=== PATIENT | female | born 1995 | race Caucasian/White ===

== ENCOUNTER 2016-10-01 21:21 | Emergency (ER) | payer OTHER ==
[2016-10-01 21:39] VITALS: TEMP 97.2
[2016-10-01] MEDS ORDERED: SODIUM CHLORIDE 0.9% 1,000 ML IV STA (23:28)
[2016-10-01] MEDS ORDERED: RX INFO: IV CONTRAST WAS GIVEN 1 EACH MISC MISCELLANE PRN (23:28)
[2016-10-01] MEDS ORDERED: ONDANSETRON 4 MG/2 ML VIAL IVP STA (23:28)
[2016-10-01] MEDS ORDERED: HYDROmorphone 1 MG/ML 1 ML SYRINGE IVP STA (23:29)
[2016-10-01] MEDS ORDERED: diphenhydrAMINE 50 MG/ML 1 ML VIAL IVP STA (23:29)
[2016-10-02 00:14] LABS: Appearance,Urine Turbid (Clear); Bacteria,Urine Moderate /hpf; Bilirubin,Urine Negative (Negative); Glucose,Urine (UA) Negative (Negative); Ketones,Urine Negative (Negative); Leukocyte Esterase,Urine Moderate (Negative); Mucus,Urine Many /hpf; Nitrite,Urine Negative (Negative); PH, Urine 6.5 (5.0-8.0); Particle Count 427985; Protein,Urine 1+ (Negative); RBC,Urine 5 /hpf (0-5); Specific Gravity,Urine 1.025 (1.001-1.035); Squamous Epithelial Cell,Urine 17 /hpf (0-4); UA Billing (MACRO vs. MICRO) MICRO; WBC,Urine 29 /hpf (0-5)
[2016-10-02 00:19] LABS: Basophils # (A) 0.1 k/uL (0-0.2); Basophils % (A) 1 %; CHCM 32.7; Eosinophils # (A) 0.4 k/uL (0-0.7); Eosinophils % (A) 6 %; HCT 39.3 % (34.0-46.0); HDW 2.18; HGB 12.5 gm/dL (11.4-16.0); Luc % (Auto) 3; Lymphocytes # (A) 2.9 k/uL (1.0-4.8); Lymphocytes % (A) 43 %; MCH 26.5 pg (25.0-35.0); MCHC 31.9 g/dL (31.0-37.0); Mean Platelet Volume 7.6; Monocytes # (A) 0.6 k/uL (0-1.0); Monocytes % (A) 8 %; Neutrophils # (A) 2.7 k/uL (1.3-7.7); Neutrophils % (A) 39 %; RBC 4.73 m/uL (3.80-5.40); RDW 14.4 % (11.5-15.5); WBC 6.8 k/uL (4.0-11.0); WBC (Perox) 6.84
[2016-10-02 00:29] LABS: INR 1.2 (<1.2); Partial Thromboplastin Time 25.8 sec (22.0-30.0); Prothrombin Time 11.9 sec (9.0-12.0)
--- NOTE | 2016-10-02 00:29 | ED ---
General Adult HPI - General Chief complaint: Headache Stated complaint: headache/nausea Time Seen by Provider: 10/01/16 23:07 Source: patient, RN notes reviewed, old records reviewed Mode of arrival: ambulatory Limitations: no limitations - History of Present Illness Initial comments: This is a 20-year-old female to the ER for evaluation. Patient today presents for evaluation of headache. Right-sided headache occasional numbness and tingling. Headache is throbbing, started to progressively worse. No nausea vomiting. No other issue no fevers. No trauma. Patient has no prior history of similar headaches. - Related Data Home Medications Medication Instructions Recorded Confirmed Albuterol Inhaler [Ventolin Hfa 2 puff INHALATION RT-QID PRN 10/01/16 10/01/16 Inhaler] DULoxetine HCL [Cymbalta] 20 mg PO DAILY 10/01/16 10/01/16 EPINEPHrine (Auto Inject) [Epipen] 0.3 mg IM ONCE PRN 10/01/16 10/01/16 clonazePAM [KlonoPIN] 0.5 mg PO DAILY PRN 10/01/16 10/01/16 Allergies Allergy/AdvReac Type Severity Reaction Status Date / Time almond oil Allergy Anaphylaxis Verified 10/01/16 22:54 bee venom protein (honey bee) Allergy Anaphylaxis Verified 10/01/16 22:54 coconut Allergy Anaphylaxis Verified 10/01/16 22:54 ciprofloxacin [From Cipro] AdvReac Nausea & Verified 10/01/16 22:54 Vomiting ketorolac [From Toradol] AdvReac Nausea & Verified 10/01/16 22:54 Vomiting morphine AdvReac Nausea & Verified 10/01/16 22:54 Vomiting Review of Systems ROS Statement: Those systems with pertinent positive or pertinent negative responses have been documented in the HPI. ROS Other: All systems not noted in ROS Statement are negative. Past Medical History Past Medical History: No Reported History History of Any Multi-Drug Resistant Organisms: None Reported Past Surgical History: Appendectomy Past Psychological History: Depression Smoking Status: Never smoker Past Alcohol Use History: None Reported Past Drug Use History: None Reported General Exam Limitations: no limitations General appearance: alert, in no apparent distress Head exam: Present: atraumatic, normocephalic, normal inspection Eye exam: Present: normal appearance, PERRL, EOMI. Absent: scleral icterus, conjunctival injection, periorbital swelling ENT exam: Present: normal exam, mucous membranes moist Neck exam: Present: normal inspection. Absent: tenderness, meningismus, lymphadenopathy Respiratory exam: Present: normal lung sounds bilaterally. Absent: respiratory distress, wheezes, rales, rhonchi, stridor Cardiovascular Exam: Present: regular rate, normal rhythm, normal heart sounds. Absent: systolic murmur, diastolic murmur, rubs, gallop, clicks GI/Abdominal exam: Present: soft, normal bowel sounds. Absent: distended, tenderness, guarding, rebound, rigid Extremities exam: Present: normal inspection, full ROM, normal capillary refill. Absent: tenderness, pedal edema, joint swelling, calf tenderness Back exam: Present: normal inspection Neurological exam: Present: alert, oriented X3, CN II-XII intact Psychiatric exam: Present: normal affect, normal mood Skin exam: Present: warm, dry, intact, normal color. Absent: rash Course Vital Signs 10/01/16 10/02/16 21:35 02:00 Temperature 97.2 F L Pulse Rate 71 90 Respiratory 18 16 Rate Blood Pressure 122/58 101/53 O2 Sat by Pulse 99 Oximetry EKG Findings - EKG Comments: EKG Findings:: EKG shows normal sinus rhythm rate of 67, NC 1.4, QRS 96, QTC 405 Medical Decision Making - Medical Decision Making 20 female here for evaluation regarding headache, asking for work note however CT negative. Patient will be discharged home - Lab Data Result diagrams: 10/02/16 23:45 10/02/16 00:00 Lab Results 10/01/16 10/01/16 10/02/16 Range/Units 00:00 23:48 00:00 WBC (4.0-11.0) k/uL RBC (3.80-5.40) m/uL Hgb (11.4-16.0) gm/dL Hct (34.0-46.0) % MCV (80.0-100.0) fL MCH (25.0-35.0) pg MCHC (31.0-37.0) g/dL RDW (11.5-15.5) % Plt Count (150-450) k/uL Neutrophils % % Lymphocytes % % Monocytes % % Eosinophils % % Basophils % % Neutrophils # (1.3-7.7) k/uL Lymphocytes # (1.0-4.8) k/uL Monocytes # (0-1.0) k/uL Eosinophils # (0-0.7) k/uL Basophils # (0-0.2) k/uL PT (9.0-12.0) sec INR (<1.2) APTT (22.0-30.0) sec Sodium 140 (137-145) mmol/L Potassium 4.1 (3.5-5.1) mmol/L Chloride 107 (98-107) mmol/L Carbon Dioxide 25 (22-30) mmol/L Anion Gap 8 mmol/L BUN 10 (7-17) mg/dL Creatinine 0.63 (0.52-1.04) mg/dL Est GFR (MDRD) Af Amer >60 (>60 ml/min/1.73 sqM) Est GFR (MDRD) Non-Af >60 (>60 ml/min/1.73 sqM) Glucose 90 (74-99) mg/dL Calcium 9.0 (8.4-10.2) mg/dL Phosphorus 3.9 (2.5-4.5) mg/dL Magnesium 2.0 (1.6-2.3) mg/dL Total Bilirubin 0.5 (0.2-1.3) mg/dL AST 18 (14-36) U/L ALT 28 (9-52) U/L Alkaline Phosphatase 43 (38-126) U/L Total Protein 6.8 (6.3-8.2) g/dL Albumin 4.1 (3.5-5.0) g/dL Urine Color Yellow Urine Appearance Turbid H (Clear) Urine pH 6.5 (5.0-8.0) Ur Specific [place] 1.025 (1.001-1.035) Urine Protein 1+ H (Negative) Urine Glucose (UA) Negative (Negative) Urine Ketones Negative (Negative) Urine Blood Negative (Negative) Urine Nitrite Negative (Negative) Urine Bilirubin Negative (Negative) Urine Urobilinogen 2.0 (<2.0) mg/dL Ur Leukocyte Esterase Moderate H (Negative) Urine RBC 5 (0-5) /hpf Urine WBC 29 H (0-5) /hpf Ur Squamous Epith Cells 17 H (0-4) /hpf Urine Bacteria Moderate H (None) /hpf Urine Mucus Many H (None) /hpf Urine HCG, Qual Not Detected (Not Detectd) Urine Opiates Screen Not Detected (NotDetected) Ur Oxycodone Screen Not Detected (NotDetected) Urine Methadone Screen Not Detected (NotDetected) Ur Propoxyphene Screen Not Detected (NotDetected) Ur Barbiturates Screen Not Detected (NotDetected) U Tricyclic Antidepress Not Detected (NotDetected) Ur Phencyclidine Scrn Not Detected (NotDetected) Ur Amphetamines Screen Not Detected (NotDetected) U Methamphetamines Scrn Not Detected (NotDetected) U Benzodiazepines Scrn Not Detected (NotDetected) Urine Cocaine Screen Not Detected (NotDetected) U Marijuana (THC) Screen Not Detected (NotDetected) 10/02/16 10/02/16 Range/Units 00:00 23:45 WBC 6.8 (4.0-11.0) k/uL RBC 4.73 (3.80-5.40) m/uL Hgb 12.5 (11.4-16.0) gm/dL Hct 39.3 (34.0-46.0) % MCV 83.0 (80.0-100.0) fL MCH 26.5 (25.0-35.0) pg MCHC 31.9 (31.0-37.0) g/dL RDW 14.4 (11.5-15.5) % Plt Count 234 (150-450) k/uL Neutrophils % 39 % Lymphocytes % 43 % Monocytes % 8 % Eosinophils % 6 % Basophils % 1 % Neutrophils # 2.7 (1.3-7.7) k/uL Lymphocytes # 2.9 (1.0-4.8) k/uL Monocytes # 0.6 (0-1.0) k/uL Eosinophils # 0.4 (0-0.7) k/uL Basophils # 0.1 (0-0.2) k/uL PT 11.9 (9.0-12.0) sec INR 1.2 H (<1.2) APTT 25.8 (22.0-30.0) sec Sodium (137-145) mmol/L Potassium (3.5-5.1) mmol/L Chloride (98-107) mmol/L Carbon Dioxide (22-30) mmol/L Anion Gap mmol/L BUN (7-17) mg/dL Creatinine (0.52-1.04) mg/dL Est GFR (MDRD) Af Amer (>60 ml/min/1.73 sqM) Est GFR (MDRD) Non-Af (>60 ml/min/1.73 sqM) Glucose (74-99) mg/dL Calcium (8.4-10.2) mg/dL Phosphorus (2.5-4.5) mg/dL Magnesium (1.6-2.3) mg/dL Total Bilirubin (0.2-1.3) mg/dL AST (14-36) U/L ALT (9-52) U/L Alkaline Phosphatase (38-126) U/L Total Protein (6.3-8.2) g/dL Albumin (3.5-5.0) g/dL Urine Color Urine Appearance (Clear) Urine pH (5.0-8.0) Ur Specific [place] (1.001-1.035) Urine Protein (Negative) Urine Glucose (UA) (Negative) Urine Ketones (Negative) Urine Blood (Negative) Urine Nitrite (Negative) Urine Bilirubin (Negative) Urine Urobilinogen (<2.0) mg/dL Ur Leukocyte Esterase (Negative) Urine RBC (0-5) /hpf Urine WBC (0-5) /hpf Ur Squamous Epith Cells (0-4) /hpf Urine Bacteria (None) /hpf Urine Mucus (None) /hpf Urine HCG, Qual (Not Detectd) Urine Opiates Screen (NotDetected) Ur Oxycodone Screen (NotDetected) Urine Methadone Screen (NotDetected) Ur Propoxyphene Screen (NotDetected) Ur Barbiturates Screen (NotDetected) U Tricyclic Antidepress (NotDetected) Ur Phencyclidine Scrn (NotDetected) Ur Amphetamines Screen (NotDetected) U Methamphetamines Scrn (NotDetected) U Benzodiazepines Scrn (NotDetected) Urine Cocaine Screen (NotDetected) U Marijuana (THC) Screen (NotDetected) - Radiology Data Radiology results: report reviewed (CTA CT brain is negative for acute disease) , image reviewed Disposition Clinical Impression: Migraine Disposition: HOME SELF-CARE Condition: Good Instructions: Acute Headache (ED) Referrals: Selene Carl MD [Primary Care Provider] - 1-2 days
[2016-10-02 00:33] LABS: ALT 28 U/L (9-52); AST 18 U/L (14-36); Alkaline Phosphatase 43 U/L (38-126); Anion Gap 8 mmol/L; Blood Urea Nitrogen 10 mg/dL (7-17); Carbon Dioxide 25 mmol/L (22-30); Chloride 107 mmol/L (98-107); Glucose 90 mg/dL (74-99); Non-African American GFR(MDRD) >60 (>60 ml/min/1.73 sqM); Phosphorous 3.9 mg/dL (2.5-4.5); Potassium 4.1 mmol/L (3.5-5.1); Sodium 140 mmol/L (137-145); Total Bilirubin 0.5 mg/dL (0.2-1.3); Total Protein 6.8 g/dL (6.3-8.2)
--- NOTE | 2016-10-02 01:31 | CT ---
EXAM: CT Head Without Intravenous Contrast CLINICAL HISTORY: Weakness. Headache. Numbness in the lips and left hand TECHNIQUE: Axial computed tomography images of the head/brain without intravenous contrast. Coronal and sagittal reformats were obtained. CTDI is 57.40 mGy and DLP is 1116.00 mGy-cm. This CT exam was performed using one or more of the following dose reduction techniques: automated exposure control, adjustment of the mA and/or kV according to patient size, and/or use of iterative reconstruction technique. COMPARISON: None FINDINGS: Brain: Unremarkable. No hemorrhage. No edema. Ventricles: Unremarkable. No ventriculomegaly. Bones/joints: Unremarkable. No acute fracture. Sinuses: Unremarkable as visualized. No acute sinusitis. Mastoid air cells: Unremarkable as visualized. No mastoid effusion. IMPRESSION: No acute intracranial abnormality.
[2016-10-02 02:10] VITALS: BP 101/53; PULSE 90; RESP 16
--- NOTE | 2016-10-02 02:12 | CT ---
EXAM: CT Angiography Head With Intravenous Contrast CLINICAL HISTORY: Reason: Pain TECHNIQUE: Axial computed tomographic angiography images of the head with intravenous contrast using CT angiography protocol. Coronal and sagittal reformats were obtained. CTDI is 57.4 mGy and DLP is 1116.0 mGy-cm. This CT exam was performed using one or more of the following dose reduction techniques: automated exposure control, adjustment of the mA and/or kV according to patient size, and/or use of iterative reconstruction technique. MIP reconstructed images were created and reviewed. CONTRAST: 65 mL of Omnipaque 350 administered intravenously. COMPARISON: Noncontrast head CT earlier same evening. FINDINGS: Right internal carotid artery: No acute findings. Intracranial segment is patent with no significant stenosis. No aneurysm. Right anterior cerebral artery: Unremarkable. No occlusion or significant stenosis. No aneurysm. Right middle cerebral artery: Unremarkable. No occlusion or significant stenosis. No aneurysm. Right posterior cerebral artery: Unremarkable. No occlusion or significant stenosis. No aneurysm. Right vertebral artery: Patent, dominant artery. No stenosis or dissection. Left internal carotid artery: No acute findings. Intracranial segment is patent with no significant stenosis. No aneurysm. Left anterior cerebral artery: Unremarkable. No occlusion or significant stenosis. No aneurysm. Left middle cerebral artery: Unremarkable. No occlusion or significant stenosis. No aneurysm. Left posterior cerebral artery: Unremarkable. No occlusion or significant stenosis. No aneurysm. Left vertebral artery: Patent. No stenosis or dissection. Basilar artery: Unremarkable. No occlusion or significant stenosis. No aneurysm. IMPRESSION: No aneurysm or hemodynamically significant stenosis. EXAM: CT Angiography Neck With Intravenous Contrast CLINICAL HISTORY: Reason: Pain TECHNIQUE: Axial computed tomographic angiography images of the neck with intravenous contrast using CT angiography protocol. Coronal and sagittal reformats were obtained. CTDI is 49.8 mGy and DLP is 196.4 mGy-cm. This CT exam was performed using one or more of the following dose reduction techniques: automated exposure control, adjustment of the mA and/or kV according to patient size, and/or use of iterative reconstruction technique. MIP reconstructed images were created and reviewed. CONTRAST: 65 mL of Omnipaque 350 administered intravenously. COMPARISON: None. FINDINGS: VASCULATURE: Contrast bolus timing is suboptimal, mildly delayed with greater degree of enhancement of the jugular veins and carotid arteries. Allowing for this, the carotid arteries are sufficiently enhanced for assessment. Right common carotid artery: Unremarkable. No significant stenosis. No dissection or occlusion. Right internal carotid artery: Unremarkable. Extracranial segment is patent with no significant stenosis. No dissection or occlusion. Right external carotid artery: Unremarkable. No occlusion. Right vertebral artery: Unremarkable. No significant stenosis. No dissection or occlusion. Left common carotid artery: Unremarkable. No significant stenosis. No dissection or occlusion. Left internal carotid artery: Unremarkable. Extracranial segment is patent with no significant stenosis. No dissection or occlusion. Left external carotid artery: Unremarkable. No occlusion. Left vertebral artery: Unremarkable. No significant stenosis. No dissection or occlusion. NECK: Bones/joints: No acute fracture. No dislocation. Soft tissues: Unremarkable as visualized. No mass. CAROTID STENOSIS REFERENCE USING NASCET CRITERIA: % ICA stenosis = (1 - narrowest ICA diameter/diameter of distal cervical ICA) x 100. Mild - <50% stenosis. Moderate - 50-69% stenosis. Severe - 70-94% stenosis. Near occlusion - 95-99% stenosis. Occluded - 100% stenosis. IMPRESSION: No dissection or hemodynamically significant stenosis.
== END 2016-10-02 02:48 | disposition home or self-care (01) ==
LOC: EC 21:21
DX: G43.909 Migraine, unspecified, not intractable, without status migrainosus (principal); F32.9 Major depressive disorder, single episode, unspecified; Z79.899 Other long term (current) drug therapy; Z88.1 Allergy status to other antibiotic agents; Z88.5 Allergy status to narcotic agent; Z88.6 Allergy status to analgesic agent; Z91.030 Bee allergy status; Z91.018 Allergy to other foods; Z91.048 Other nonmedicinal substance allergy status
CPT/HCPCS: 36415; 93005; 80053; 83735; 84100; 85025; 85610; 85730; 81001; 81025; 87491; 87591; 80306; 87086; 70496; 70450; 70498; 99285; 96374; 96375; 96361; J1200; Q9967; J2405; 87077; 87186

== ENCOUNTER 2017-02-11 18:16 | Emergency (ER) | payer OTHER ==
--- NOTE | 2017-02-11 19:33 | ED ---
URI HPI - General Chief Complaint: Upper Respiratory Infection Stated Complaint: CHEST CONGESTION Time Seen by Provider: 02/11/17 19:06 Source: patient, RN notes reviewed Mode of arrival: ambulatory Limitations: no limitations - History of Present Illness Initial Comments: This is a 21-year-old female presents emergency Department with chief complaint of cough, chest congestion over the last 3-4 days. Patient states that sometimes is productive sometimes is more of a dry hacking cough. She states it hurts when she coughs in her chest. She denies any dyspnea, fever, chills, runny nose, sore throat, ear pain. 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 Patient denies any abdominal pain including nausea vomiting diarrhea constipation. - Related Data Home Medications Medication Instructions Recorded Confirmed Albuterol Inhaler [Ventolin Hfa 2 puff INHALATION RT-QID PRN 10/01/16 02/11/17 Inhaler] DULoxetine HCL [Cymbalta] 20 mg PO DAILY 10/01/16 02/11/17 EPINEPHrine (Auto Inject) [Epipen] 0.3 mg IM ONCE PRN 10/01/16 02/11/17 clonazePAM [KlonoPIN] 0.5 mg PO DAILY PRN 10/01/16 02/11/17 ARIPiprazole [Abilify] 2 mg PO DAILY 02/11/17 02/11/17 Previous Rx's Medication Instructions Recorded Azithromycin [Zithromax Z-pack] 0 mg PO DIRECTED #1 pack 02/11/17 predniSONE 50 mg PO DAILY #5 tab 02/11/17 Allergies Allergy/AdvReac Type Severity Reaction Status Date / Time almond oil Allergy Anaphylaxis Verified 02/11/17 19:22 bee venom protein (honey bee) Allergy Anaphylaxis Verified 02/11/17 19:22 coconut Allergy Anaphylaxis Verified 02/11/17 19:22 ciprofloxacin [From Cipro] AdvReac Nausea & Verified 02/11/17 19:22 Vomiting ketorolac [From Toradol] AdvReac Nausea & Verified 02/11/17 19:22 Vomiting morphine AdvReac Nausea & Verified 02/11/17 19:22 Vomiting Review of Systems ROS Statement: Those systems with pertinent positive or pertinent negative responses have been documented in the HPI. ROS Other: All systems not noted in ROS Statement are negative. Past Medical History Past Medical History: No Reported History History of Any Multi-Drug Resistant Organisms: None Reported Past Surgical History: Appendectomy Past Psychological History: Depression Smoking Status: Never smoker Past Alcohol Use History: None Reported Past Drug Use History: None Reported General Exam Limitations: no limitations General appearance: alert, in no apparent distress Head exam: Present: atraumatic, normocephalic, normal inspection Eye exam: Present: normal appearance, PERRL, EOMI. Absent: scleral icterus, conjunctival injection, periorbital swelling ENT exam: Present: normal exam, normal oropharynx, mucous membranes moist, TM's normal bilaterally, normal external ear exam Neck exam: Present: normal inspection, full ROM. Absent: tenderness, meningismus, lymphadenopathy Respiratory exam: Present: normal lung sounds bilaterally, chest wall tenderness (Mild anterior). Absent: respiratory distress, wheezes, rales, rhonchi, stridor Cardiovascular Exam: Present: regular rate, normal rhythm, normal heart sounds. Absent: systolic murmur, diastolic murmur, rubs, gallop, clicks GI/Abdominal exam: Present: soft, normal bowel sounds. Absent: distended, tenderness, guarding, rebound, rigid Course Vital Signs 02/11/17 18:54 Temperature 98.9 F Pulse Rate 94 Respiratory 18 Rate Blood Pressure 106/55 O2 Sat by Pulse 99 Oximetry Medical Decision Making - Medical Decision Making 21-year-old female presented emergency Department chief complaint of cough congestion, chest discomfort with coughing. Patient has acute bronchitis with costochondritis. Patient was started on azithromycin, prednisone. Return parameters were discussed. Disposition Clinical Impression: Bronchitis, Costochondritis, acute Disposition: HOME SELF-CARE Condition: Stable Instructions: Costochondritis (ED) Additional Instructions: Please return to the Emergency Department if symptoms worsen or any other concerns. Prescriptions: Azithromycin [Zithromax Z-pack] 0 mg PO DIRECTED #1 pack predniSONE 50 mg PO DAILY #5 tab Referrals: Selene Carl MD [Primary Care Provider] - 1-2 days Time of Disposition: 20:03
[2017-02-11 20:20] VITALS: BP 112/60; PULSE 85; RESP 20; TEMP 98.5
--- NOTE | 2017-02-11 20:24 | XR ---
EXAMINATION: XR chest 2V DATE AND TIME: 02/11/2017 7:49 PM ORDERING PROVIDER: Brennon Andrade CLINICAL INDICATION: Cough/pain TECHNIQUE: PA and lateral COMPARISON: None. DESCRIPTION: The lungs are clear. The pleural spaces are negative. The cardiac silhouette is not enlarged. The mediastinal and pleural silhouettes are unremarkable. The skeletal structures are intact without focal findings. The soft tissues are unremarkable. IMPRESSION: NO ACUTE PROCESS.
== END 2017-02-11 20:20 | disposition home or self-care (01) ==
LOC: EC 18:16
DX: J20.9 Acute bronchitis, unspecified (principal); M94.0 Chondrocostal junction syndrome [Tietze]; F32.9 Major depressive disorder, single episode, unspecified; Z79.899 Other long term (current) drug therapy; Z88.1 Allergy status to other antibiotic agents; Z88.5 Allergy status to narcotic agent; Z88.6 Allergy status to analgesic agent; Z91.018 Allergy to other foods; Z91.030 Bee allergy status; Z91.048 Other nonmedicinal substance allergy status
CPT/HCPCS: 71020; 99283

== ENCOUNTER 2017-06-22 23:00 | Outpatient (CLI) | payer OTHER ==
[2017-06-22 23:50] VITALS: BP 143/80; PULSE 117; RESP 16; TEMP 97.8
--- NOTE | 2017-06-23 06:45 | P.MSEPDOC ---
Presenting Problems - Arrival Data Date of Arrival on Unit: 06/22/17 Time of Arrival on Unit: 23:01 Mode of Transport: Wheelchair - Complaint OB-Reason for Admission/Chief Complaint: Pain Comment: abd pain x20 mins Medical History - Information : 1 Para: 0 Term: 0 : 0 Abortions: Spontaneous or Elective: 0 Number of Living Children: 0 - Gestational Age Gestational Age by AMELIA (wks/days): 22 Weeks and 0 Days - History Comment: DOM- pt of Dr Hargrove Review of Systems - Review of Systems Constitutional: No problems Breast: No problems ENT: No problems Cardiovascular: No problems Respiratory: No problems Gastrointestinal: No problems Genitourinary: No problems Musculoskeletal: No problems Neurological: No problems Skin: No problems Vital Signs - Temperature Temperature: 97.8 F Temperature Source: Temporal Artery Scan - Pulse Right Pulse Rate: 117 Pulse Assessment Method: Pulse Oximetry - Respirations Respiratory Rate: 16 O2 Sat by Pulse Oximetry: 100 - Blood Pressure Right Arm Blood Pressure: 143/80 Blood Pressure Mean: 101 Blood Pressure Source: Automatic Cuff Medical Screen Scoring (Pre) - Cervical Exam Dilation: Exam Deferred Effacement: Exam Deferred - Uterine Contractions Frequency: N/A Duration: N/A Intensity: N/A - Maternal Vital Signs Maternal Temperature: N/A Maternal Blood Pressure: N/A Signs of Preeclampsia: N/A - Pain Assessment Pain Location and Character: Abdomen Pain Scale Used: Numeric (1 - 10) Pain Intensity: 6 Pain Management Goal: 3 Pain Description: *Acute, Sharp Pain Frequency: Constant Pain Duration: 20 Pain Duration Units: Minutes Pain Aggravating Factors: None Pharmacological Interventions: PRN Medication Non-Pharmacological Interventions: Position/Reposition - Maternal Trauma Maternal Trauma: N/A - Total Score Total Score (Pre): 0 - Level of Risk Level of Risk: Low (0-5) Physician Notification (Pre) - Physician Notified Physician Notified Date: 06/22/17 Physician Notified Time: 23:28 Physician/Practitioner Notifed:: Dr Blackwell - Notification Comment Comment: reported on pts c/o sudden onset abd pain since 2244, arrived here at 2300. reported on fhts dopplered 132-150s, no cntrx noted, abd soft and non tender. orders to check cervix and if closed may go home, if HR is still elevated then may go to ER for further eval. Disposition - Disposition OB Disposition: Discharge to home Discharge Date: 06/22/17 Discharge Time: 23:45 I agree with the RN Medical Screening Exam: Yes Risk & Benefit of care provided described in d/c instruction: Yes Diagnosis: GENERALIZED ABDOMINAL PAIN
== END 2017-06-22 23:45 | disposition home or self-care (01) ==
LOC: FBPOP 23:00
PROVIDERS: ATTEND Obstetrics & Gynecology
DX: O26.893 Other specified pregnancy related conditions, third trimester (principal); R10.84 Generalized abdominal pain; Z3A.22 22 weeks gestation of pregnancy
CPT/HCPCS: 99213

== ENCOUNTER 2017-08-18 13:42 | Outpatient (CLI) | payer OTHER ==
[2017-08-18 14:17] VITALS: BP 126/65; PULSE 88; RESP 16; TEMP 98.6
--- NOTE | 2017-08-27 22:10 | P.MSEPDOC ---
Presenting Problems - Arrival Data Date of Arrival on Unit: 08/18/17 Time of Arrival on Unit: 13:50 Mode of Transport: Wheelchair - Complaint OB-Reason for Admission/Chief Complaint: Rule Out PROM Comment: pt arrived c/o cramping and states she had leaking of fluid that she noticed about 10 mintes prior to coming up here to l/d to be evualted Medical History - Information : 1 Para: 0 Term: 0 : 0 Abortions: Spontaneous or Elective: 0 Number of Living Children: 0 - Gestational Age Gestational Age by AMELIA (wks/days): 30 Weeks and 1 Days - History Complications: No Care Review of Systems - Review of Systems Constitutional: No problems Breast: No problems ENT: No problems Cardiovascular: No problems Respiratory: No problems Gastrointestinal: No problems Genitourinary: No problems Musculoskeletal: No problems Neurological: No problems Skin: No problems Vital Signs - Temperature Temperature: 98.6 F Temperature Source: Oral - Pulse Right Brachial Pulse Rate: 88 Pulse Assessment Method: Automatic Cuff - Respirations Respiratory Rate: 16 Oxygen Delivery Method: Room Air - Blood Pressure Right Arm Blood Pressure: 126/65 Blood Pressure Mean: 85 Blood Pressure Source: Automatic Cuff Medical Screen Scoring (Post) - Cervical Exam Dilation: Exam Deferred Effacement: Exam Deferred Membranes: Intact - Uterine Contractions Frequency: N/A Duration: N/A Intensity: N/A - Maternal Vital Signs Maternal Temperature: N/A Signs of Preeclampsia: N/A Maternal Respirations: N/A - Pain Assessment Pain Location and Character: Abdomen Pain Scale Used: Numeric (1 - 10) Pain Intensity: 1 Pain Management Goal: 1 Pain Description: Cramping Pain Radiation Location: n/a Pain Frequency: Occasional Pain Duration: 45 Pain Duration Units: Minutes Pain Behavior: Vocalization Pain Aggravating Factors: Position, Sitting Non-Pharmacological Interventions: Position/Reposition, Relaxation Technique - Maternal Trauma Maternal Trauma: N/A - Assessment Heart Rate: 150 Heart Rate - NICHD Category: Category I (Normal) = 0 NST: Reactive Position: N/A Station: N/A - Total Score Total Score (Post): 0 - Post Treatment Level of Risk Post Treatment Level of Risk: Low (0-5) Physician Notification (Post) - Physician Notified Physician Notified Date: 08/18/17 Physician Notified Time: 14:30 Spoke With: dr mojica New Order Received: Yes - Notification Comment Comment: may discharge home Disposition - Disposition OB Disposition: Discharge to home Discharge Date: 08/18/17 Discharge Time: 14:35 I agree with the RN Medical Screening Exam: Yes Risk & Benefit of care provided described in d/c instruction: Yes Diagnosis: FALSE LABOR BEFORE 37 COMPLETED WEEKS OF GEST, THIRD TRI
== END 2017-08-18 14:35 | disposition home or self-care (01) ==
LOC: FBPOP 13:42
PROVIDERS: ATTEND Obstetrics & Gynecology
DX: O47.03 False labor before 37 completed weeks of gestation, third trimester (principal); Z3A.30 30 weeks gestation of pregnancy
CPT/HCPCS: 59025; 84112; G0463; 99213

== ENCOUNTER 2017-10-04 19:34 | Observation (INO) | payer OTHER ==
[2017-10-04 21:29] VITALS: RESP 18
--- NOTE | 2017-10-04 22:12 | US ---
EXAMINATION TYPE: US OB >= 14 wk fetus DATE OF EXAM: 10/04/2017 COMPARISON: None CLINICAL HISTORY: cardiac decelerations; patient stated came to hospital due to reduced moveme nt; patient stated is measuring approximately 2 weeks earlier than established EDC; TECHNIQUE: Transabdominal (TA) GESTATIONAL AGE / DATING Physician Established: (36 weeks/6 days) EDC: 10/26/2017 Dates by LMP: (36 weeks/3 days) EDC: 10/26/2017 Dates by First Scan: no previous. This is first scan at this hospital Dates by Current Scan: (38 weeks/4 days) EDC: 10/14/2017 Beta HCG (if available): NA SURVEY IUP: Single PLACENTA: posterior as able to visualize due to crowding PREVIA: No Previa as able to visualize cervix as head shadowing portion of cervix HENRY: 12.2 cm Normal CERVICAL LENGTH (transabdominal: norm > 3.0cm): 3.4 cm BIOMETRY PRESENTATION: Vertex LIE: Longitudinal BPD: 9.8 cm 40 weeks / 0 days HC: 34.9 cm 40 weeks / 4 days AC: 34.9 cm 38 weeks / 5 days FL: 7.3 cm 37 weeks / 4 days ESTIMATED WEIGHT IN GRAMS: 3609.0 grams ESTIMATED WEIGHT IN LBS/OZ: 7 lbs. 15 oz. WEIGHT PERCENTAGE BASED ON ESTABLISHED DATES: 94.6% HC/AC: 1.0 Normal FL/AC: 21.03 Normal HEART RATE: 140 bpm RHYTHM: Normal Single, live IUP, 38 weeks/4 days, EDC: 10/14/2017, [id number]. IMPRESSION: Cervix appears closed and measures 3.3 cm. Amniotic fluid is adequate. No complicating process seen.
[2017-10-04] MEDS: LACTATED RINGERS 1,000 ML IV SCH (23:21)
[2017-10-04 23:27] LABS: Basophils % (A) 0 %; Eosinophils # (A) 0.3 k/uL (0-0.7); Eosinophils % (A) 4 %; HCT 26.5 % (34.0-46.0); HGB 8.7 gm/dL (11.4-16.0); Lymphocytes # (A) 1.5 k/uL (1.0-4.8); Lymphocytes % (A) 21 %; MCH 25.2 pg (25.0-35.0); MCHC 32.9 g/dL (31.0-37.0); MCV 76.5 fL (80.0-100.0); Mean Platelet Volume 8.1; Monocytes # (A) 0.5 k/uL (0-1.0); Monocytes % (A) 7 %; Neutrophils # (A) 4.8 k/uL (1.3-7.7); Neutrophils % (A) 66 %; Platelet Count 274 k/uL (150-450); RBC 3.47 m/uL (3.80-5.40); WBC 7.3 k/uL (4.0-11.0)
[2017-10-05 00:15] VITALS: BP 132/70; PULSE 94; TEMP 97.5; BMI 34.9
[2017-10-05 00:15] LABS: Amphetamine Screen,Urine Not Detected (NotDetected); Barbiturate Screen,Urine Not Detected (NotDetected); Benzodiazepines Screen,Urine Not Detected (NotDetected); Cocaine Screen,Urine Not Detected (NotDetected); Methadone Screen, Urine Not Detected (NotDetected); Opiate Screen,Urine Not Detected (NotDetected); Oxycodone Screen, Urine Not Detected (NotDetected); Phencyclidine Screen,Urine Not Detected (NotDetected); Tricyclic Antidepressant,Urine Not Detected (NotDetected); Urn Cannabinoid Scrn Not Detected (NotDetected)
--- NOTE | 2017-10-05 00:20 | US ---
EXAMINATION TYPE: US OB BPP wo non-stress DATE OF EXAM: 10/05/2017 COMPARISON: US CLINICAL HISTORY: decel.; another cardiac deceleration episode per patient's RN EXAM PERFORMED: Transabdominal (TA) BPP PARAMETERS: PRESENTATION: Vertex LIE: longitudinal maternal left?? HEART RATE: 144 bpm RHYTHM: Normal HENRY: 15.1cm DIAPHRAGM IMAGED: yes BPP SCORIN. Breathin (seen near exam's end) (1 episode of breathing of 30 second duration in 30 minutes of scanning time) 2. Movement: 2 (continual sucking of thumb) with multiple episodes, plus head turn and return (at least 3 discrete body movements in 30 minutes) 3. Tone: 2 (head rotated and moved back to position) (1 episode of active flexion/extension of limb) 4. HENRY: 2 (HENRY index > 5cm) TOTAL SCORE: 8 / 8 Impression The biophysical profile score is normal.
[2017-10-05] MEDS: LACTATED RINGERS 1,000 ML IV SCH (06:05)
--- NOTE | 2017-10-05 07:17 | P.HPOB ---
History of Present Illness H&P Date: 10/05/17 Chief Complaint: Decreased movement This is a 21-year-old white female 1 para 0 EDC 10/26/2017 at 36-6/7 weeks' gestation. Patient states she perceived decreased movement, noted to movements over the course of 2 hours while doing her kick counts. She came in for monitoring at that time. Over the course of monitoring a deceleration was noted for approximate 2 minutes. For that reason, an ultrasound was performed. This revealed a sapp vertex fluid, normal amniotic fluid index of 12.22, estimated weight 7 lbs. 15 oz. or 2008 grams, 94th percentile. Urine drug screen was performed and this was negative. The decision was made to admit the patient for prolonged monitoring through the night. history significant for blood type AB+, rubella status immune, VDRL testing, urine culture, hepatitis B surface antigen, HIV testing, gonorrhea and chlamydia cultures all negative. Group B strep cultures negative. Patient did present to our office late in the as a transfer from another physician. Social history patient is single, she denies alcohol drug or tobacco use. Past medical history significant for bipolar disorder, complex seizure disorder , depression and anxiety, and asthma. Past surgical history significant for appendectomy, myringotomy tubes. Current medications Ventolin inhaler as needed, vitamin daily. ALLERGIES include ciprofloxacin to which she reports emesis and blurry vision, morphine and Toradol to which she reports emesis. On exam this is a pleasant young female, 4 foot 8 inches 15 6 pounds, blood pressure 132/70, pulse 94, 99% O2 saturation. The general physical exam is within normal limits. Chest was clear in all maxwell. Cervix is closed, long, posterior, vertex. heart rate is in the 140s baseline with overall good variability, periods of reactive NST. Hemoglobin 8.7, white blood cell count 7.3. Impression: 36-6/7 weeks intrauterine , maternal perception for decreased movement. Plan biophysical profile will be performed. Monitoring through the night with reassessment in the morning. Review of Systems Negative except as in HPI Past Medical History Past Medical History: Asthma, GERD/Reflux, Seizure Disorder Additional Past Medical History / Comment(s): complex seizure distorder till 8 yrs old History of Any Multi-Drug Resistant Organisms: None Reported Past Surgical History: Appendectomy, Ear Surgery Past Anesthesia/Blood Transfusion Reactions: No Reported Reaction Past Psychological History: ADD/ADHD, Bipolar, Depression Smoking Status: Never smoker Past Alcohol Use History: None Reported Past Drug Use History: None Reported - Past Family History Mother Family Medical History: Diabetes Mellitus, Hypertension Medications and Allergies Home Medications Medication Instructions Recorded Confirmed Type Albuterol Inhaler [Ventolin Hfa 2 puff INHALATION RT-QID PRN 10/01/16 10/04/17 History Inhaler] EPINEPHrine (Auto Inject) [Epipen] 0.3 mg IM ONCE PRN 10/01/16 08/18/17 History Pnv,Calcium 72/Iron/Folic Acid 1 each PO DAILY 10/04/17 10/04/17 History [ Plus Tablet] Allergies Allergy/AdvReac Type Severity Reaction Status Date / Time almond oil Allergy Anaphylaxis Verified 10/04/17 19:46 bee venom protein (honey bee) Allergy Anaphylaxis Verified 10/04/17 19:46 coconut Allergy Anaphylaxis Verified 10/04/17 19:46 ciprofloxacin [From Cipro] AdvReac Nausea & Verified 10/04/17 19:46 Vomiting ketorolac [From Toradol] AdvReac Nausea & Verified 10/04/17 19:46 Vomiting morphine AdvReac Nausea & Verified 10/04/17 19:46 Vomiting Exam Vital Signs Temp Pulse Resp BP Pulse Ox 10/05/17 00:08 97.5 F L 94 18 132/70 99 10/04/17 23:00 98.4 F 117 H 18 137/71 10/04/17 19:50 97.5 F L 94 18 132/70 99 Intake and Output 10/04/17 10/05/17 10/05/17 22:59 06:59 14:59 Intake Total 1000 Balance 1000 Intake: Intake, IV Titration 1000 Amount Lactated Ringers 1,000 ml 1000 @ 125 mls/hr IV .Q8H COUNTS INCLUDE 234 BEDS AT THE [facility] Rx#:[id number] Other: # Voids 3 Weight 69.853 kg 70.76 kg See dictation under HPI Results Result Diagrams: 10/04/17 23:20 Abnormal Lab Results - Last 24 Hours (Table) 10/04/17 Range/Units 23:20 RBC 3.47 L (3.80-5.40) m/uL Hgb 8.7 L (11.4-16.0) gm/dL Hct 26.5 L (34.0-46.0) % MCV 76.5 L (80.0-100.0) fL Assessment and Plan Assessment: 36-6/7 weeks intrauterine , decreased movement, anemia Plan: Continuous monitoring through the night with reevaluation in the morning. Time with Patient: Less than 30
--- NOTE | 2017-10-05 07:19 | P.DS ---
Providers Date of admission: 10/04/17 23:11 Expected date of discharge: 10/05/17 Attending physician: Merly Lira Primary care physician: Stated None Hospital Course: This is a 21-year-old white female 1 para 0 EDC 10/26/2017 at 36-6/7 weeks' gestation. Patient presented last night with perception of decreased movement. She is a late transfer to our practice. She states and doing her kick counts she only felt 2 movements over the course of 2 hours and came in for evaluation. Reactive nonstress test was noted, however there was a deceleration noted as well. Please see my admitting H&P for details. Ultrasound was performed at the bedside. There is normal fluid, HENRY 12.2. Estimated weight 94.6 percentile. Infant is vertex, no apparent anomalies of the placenta are appreciated. An additional deceleration was noted and therefore a biophysical profile was also performed. This revealed a score of 8 out of 8. Admitting labs include hemoglobin 8.7, WBC 7.3. This morning the patient states that the baby is active. She is having irregular uterine contractions. Through the course of the night to decelerations were noted, overall good variability is appreciated. Patient's vital signs continued to be afebrile. She is hungry and wishing for discharge home. Patient may be discharged home at this time. I am recommending ferrous sulfate 325 mg twice a day. I'm asking that she continue taking good movement with daily kick counts and return if she perceives a decrease. Of activity. Otherwise she will follow-up in the office in 2 days for visit and nonstress test. Patient understands these recommendations and lives locally. Patient Condition at Discharge: Good Plan - Discharge Summary New Discharge Prescriptions: No Action EPINEPHrine (Auto Inject) [Epipen] 0.3 mg IM ONCE PRN PRN Reason: Anaphylaxis Albuterol Inhaler [Ventolin Hfa Inhaler] 2 puff INHALATION RT-QID PRN PRN Reason: Shortness Of Breath Pnv,Calcium 72/Iron/Folic Acid [ Plus Tablet] 1 each PO DAILY Discharge Medication List Albuterol Inhaler [Ventolin Hfa Inhaler] 2 puff INHALATION RT-QID PRN 10/01/16 [ History] EPINEPHrine (Auto Inject) [Epipen] 0.3 mg IM ONCE PRN 10/01/16 [History] Pnv,Calcium 72/Iron/Folic Acid [ Plus Tablet] 1 each PO DAILY 10/04/17 [ History]
== END 2017-10-05 07:30 | disposition home or self-care (01) ==
LOC: FBPOP 19:34 → INTOOBSV 23:11 → 4FBP 23:11 → UNDODISIN 10-05 07:30
PROVIDERS: ADMIT Obstetrics & Gynecology; ATTEND Obstetrics & Gynecology Obstetrics
DX: O36.8130 Decreased fetal movements, third trimester, not applicable or unspecified (principal); O99.343 Other mental disorders complicating pregnancy, third trimester; O76 Abnormality in fetal heart rate and rhythm complicating labor and delivery; O99.613 Diseases of the digestive system complicating pregnancy, third trimester; K21.9 Gastro-esophageal reflux disease without esophagitis; O99.513 Diseases of the respiratory system complicating pregnancy, third trimester; J45.909 Unspecified asthma, uncomplicated; F31.9 Bipolar disorder, unspecified; F90.9 Attention-deficit hyperactivity disorder, unspecified type; F41.9 Anxiety disorder, unspecified; O99.013 Anemia complicating pregnancy, third trimester; D64.9 Anemia, unspecified; Z3A.36 36 weeks gestation of pregnancy; Z90.49 Acquired absence of other specified parts of digestive tract; Z88.1 Allergy status to other antibiotic agents; Z91.030 Bee allergy status; Z88.5 Allergy status to narcotic agent; Z91.018 Allergy to other foods; Z86.69 Personal history of other diseases of the nervous system and sense organs; Z82.49 Family history of ischemic heart disease and other diseases of the circulatory system; Z83.3 Family history of diabetes mellitus
CPT/HCPCS: 59025; 85025; 80306; 76805; 76819; G0463; G0378 ×2; 99213

== ENCOUNTER 2017-10-09 02:20 | Outpatient (CLI) | payer OTHER ==
[2017-10-09 23:06] LABS: Appearance,Urine Cloudy (Clear); Bilirubin,Urine Negative (Negative); Blood,Urine Large (Negative); Color,Urine Light Red; Glucose,Urine (UA) Negative (Negative); Ketones,Urine Trace (Negative); Leukocyte Esterase,Urine Moderate (Negative); Mucus,Urine Rare /hpf; Nitrite,Urine Negative (Negative); PH, Urine 6.5 (5.0-8.0); Protein,Urine 1+ (Negative); RBC,Urine >182 /hpf (0-5); Specific Gravity,Urine 1.013 (1.001-1.035); Squamous Epithelial Cell,Urine 4 /hpf (0-4); Urobilinogen,Urine <2.0 mg/dL (<2.0); WBC,Urine 42 /hpf (0-5)
[2017-10-09 23:10] VITALS: BP 147/84; PULSE 107; RESP 16; TEMP 98.6
[2017-10-09] MEDS ORDERED: CEPHALEXIN 500 MG CAP PO STA (23:23)
--- NOTE | 2017-11-23 09:29 | P.MSEPDOC ---
Presenting Problems - Arrival Data Date of Arrival on Unit: 10/09/17 Time of Arrival on Unit: 22:47 Mode of Transport: Ambulatory - Complaint OB-Reason for Admission/Chief Complaint: Other Comment: bleeding with voiding Medical History - Information : 1 Para: 0 Term: 0 : 0 Abortions: Spontaneous or Elective: 0 Number of Living Children: 0 - Gestational Age Gestational Age by AMELIA (wks/days): 37 Weeks and 4 Days Review of Systems - Review of Systems Constitutional: No problems Breast: No problems ENT: No problems Cardiovascular: No problems Respiratory: No problems Gastrointestinal: No problems Genitourinary: No problems Musculoskeletal: No problems Neurological: No problems Skin: No problems Vital Signs - Temperature Temperature: 98.6 F Temperature Source: Oral - Pulse Right Sitting Brachial Pulse Rate: 107 Pulse Assessment Method: Automatic Cuff - Respirations Respiratory Rate: 16 Oxygen Delivery Method: Room Air - Blood Pressure Right Arm Sitting Blood Pressure: 147/84 Blood Pressure Mean: 105 Blood Pressure Source: Automatic Cuff Medical Screen Scoring (Pre) - Cervical Exam Dilation: Exam Deferred Effacement: Exam Deferred Membranes: Intact - Uterine Contractions Frequency: > or = 36 weeks =2 Duration: > 40 seconds = 2 - Maternal Vital Signs Maternal Temperature: N/A Maternal Blood Pressure: Systolic >139 = 2 Signs of Preeclampsia: N/A Maternal Respirations: N/A - Pain Assessment Pain Scale Used: Numeric (1 - 10) Pain Intensity: 0 - Assessment Baseline FHR: 145 Heart Rate - NICHD Category: Category I (Normal) = 0 NST: Reactive Position: N/A Station: N/A - Total Score Total Score (Pre): 6 - Level of Risk Level of Risk: Medium (6-9) Physician Notification (Pre) - Physician Notified Physician Notified Date: 10/09/17 Physician Notified Time: 22:56 Physician/Practitioner Notifed:: richard Spoke With: richard New Order Received: Yes - Notification Comment Comment: send UA, call with results. Physician Notification (Post) - Physician Notified Physician Notified Date: 10/09/17 Physician Notified Time: 23:20 Physician/Practitioner Notified:: richard Spoke With: richard New Order Received: Yes - Notification Comment Comment: give PO keflex and then d/c home with orders to f/u at her appt tomorrow. Disposition - Disposition OB Disposition: Discharge to home Discharge Date: 10/09/17 Discharge Time: 23:55 I agree with the RN Medical Screening Exam: Yes Risk & Benefit of care provided described in d/c instruction: Yes Diagnosis: URINARY TRACT INFECTION, SITE NOT SPECIFIED
== END 2017-10-09 23:55 | disposition home or self-care (01) ==
LOC: FBPOP 02:20
PROVIDERS: ATTEND Obstetrics & Gynecology Obstetrics
DX: O23.43 Unspecified infection of urinary tract in pregnancy, third trimester (principal); Z3A.37 37 weeks gestation of pregnancy
CPT/HCPCS: 59025; 81001; G0463; 99213

== ENCOUNTER 2017-10-21 10:05 | Inpatient (IN) | payer OTHER ==
[2017-10-18 14:31] VITALS: BMI 35.9
[2017-10-21] MEDS ORDERED: METHYLERGONOVINE 0.2 MG/ML 1 ML AMP IM PRN (10:36)
[2017-10-21] MEDS ORDERED: LIDOCAINE 1% (PF) 10 MG/ML (30 ML SDV) SQ PRN (10:36)
[2017-10-21] MEDS ORDERED: TERBUTALINE 1 MG/ML VIAL SQ PRN (10:36)
[2017-10-21] MEDS ORDERED: ceFAZolin IN SWFI 2 GM/20 ML SYRINGE IVP ONE (10:36)
[2017-10-21] MEDS ORDERED: OXYTOCIN 10 UNIT/ML 1 ML VIAL IM PRN (10:36)
[2017-10-21] MEDS ORDERED: CARBOPROST TROMETHAMINE 250 MCG/ML 1 ML AMP IM PRN (10:36)
[2017-10-21] MEDS ORDERED: CITRIC ACID-SODIUM CITRATE 15 ML CUP PO ONE (10:38)
[2017-10-21 10:58] LABS: Basophils % (A) 1 %; Eosinophils # (A) 0.4 k/uL (0-0.7); Eosinophils % (A) 9 %; HCT 28.7 % (34.0-46.0); HGB 9.3 gm/dL (11.4-16.0); Hypochromasia Slight; Lymphocytes # (A) 1.1 k/uL (1.0-4.8); Lymphocytes % (A) 24 %; MCH 25.2 pg (25.0-35.0); MCHC 32.4 g/dL (31.0-37.0); MCV 77.8 fL (80.0-100.0); Mean Platelet Volume 7.8; Monocytes # (A) 0.5 k/uL (0-1.0); Monocytes % (A) 10 %; Neutrophils # (A) 2.4 k/uL (1.3-7.7); Neutrophils % (A) 52 %; Platelet Count 217 k/uL (150-450); RBC 3.69 m/uL (3.80-5.40); WBC 4.6 k/uL (4.0-11.0)
--- NOTE | 2017-10-21 11:25 | P.HPOB ---
History of Present Illness H&P Date: 10/21/17 Chief Complaint: Breech at 39 weeks gestation This is a 21-year-old 1 para 0 woman with an estimated due date of 10/26 based on ultrasound who is admitted for a primary low transverse section secondary to breech presentation. Her has been unremarkable. She transferred care to us at approximately 34 weeks. She has a history of asthma, anxiety, depression and bipolar disorder however is not on any current treatment. Laboratory data: Blood type AB+, antibody screen negative, rubella immune, VDRL nonreactive, hep Brandi surface antigen negative, HIV negative, gonorrhea and clinic cultures negative, group B strep screening negative Review of Systems All systems: negative Past Medical History Past Medical History: Asthma, GERD/Reflux, Pneumonia, Seizure Disorder, Skin Disorder Additional Past Medical History / Comment(s): complex seizure distorder until 8 yrs old, heart murmer, eczema, anemia, pneumonia 9th grade History of Any Multi-Drug Resistant Organisms: None Reported Past Surgical History: Appendectomy, Ear Surgery Past Anesthesia/Blood Transfusion Reactions: Motion Sickness Past Psychological History: ADD/ADHD, Anxiety, Bipolar, Depression, Panic Disorder Additional Psychological History / Comment(s): "high anxiety" Smoking Status: Never smoker Past Alcohol Use History: None Reported Past Drug Use History: None Reported - Past Family History Mother Family Medical History: No Reported History Medications and Allergies Home Medications Medication Instructions Recorded Confirmed Type Albuterol Inhaler [Ventolin Hfa 2 puff INHALATION QID PRN 10/01/16 10/21/17 History Inhaler] Pnv,Calcium 72/Iron/Folic Acid 1 each PO DAILY 10/04/17 10/21/17 History [ Plus Tablet] Ferrous Sulfate [Feosol] 325 mg PO DAILY 10/18/17 10/21/17 History Allergies Allergy/AdvReac Type Severity Reaction Status Date / Time almond oil Allergy Anaphylaxis,throat Verified 10/21/17 10:38 swelling bee venom protein (honey bee) Allergy Anaphylaxis Verified 10/21/17 10:38 coconut Allergy Anaphylaxis Verified 10/21/17 10:38 ciprofloxacin [From Cipro] AdvReac Nausea & Verified 10/21/17 10:38 Vomiting ketorolac [From Toradol] AdvReac Nausea & Verified 10/21/17 10:38 Vomiting morphine AdvReac Nausea & Verified 10/21/17 10:38 Vomiting,"mean" Exam Vital Signs Temp Pulse Resp Pulse Ox 10/21/17 10:41 98.4 F 104 H 18 99 Intake and Output 10/20/17 10/21/17 10/21/17 22:59 06:59 14:59 Other: Weight 72.575 kg This is a pleasant, visibly gravid female in no apparent distress. HEENT exam is unremarkable. Her breathing is unlabored and her heart is a regular rate and rhythm. The abdomen is gravid soft and infant is breech by Freddie maneuvers. Breech is confirmed by ultrasound. Pelvic examination is deferred. heart tones are reassuring by external monitoring. She has trace lower extremity edema. Results Result Diagrams: 10/21/17 10:30 Abnormal Lab Results - Last 24 Hours (Table) 10/21/17 Range/Units 10:30 RBC 3.69 L (3.80-5.40) m/uL Hgb 9.3 L (11.4-16.0) gm/dL Hct 28.7 L (34.0-46.0) % MCV 77.8 L (80.0-100.0) fL Assessment and Plan (1) 39 weeks gestation of Current Visit: Yes Status: Acute Code(s): Z3A.39 - 39 WEEKS GESTATION OF SNOMED Code(s): 08787248 (2) Breech presentation Current Visit: Yes Status: Acute Code(s): O32.1XX0 - MATERNAL CARE FOR BREECH PRESENTATION, UNSP SNOMED Code(s): 3736047 (3) Anemia Current Visit: Yes Status: Acute Code(s): D64.9 - ANEMIA, UNSPECIFIED SNOMED Code(s): 175733697 (4) Asthma Current Visit: Yes Status: Acute Code(s): J45.909 - UNSPECIFIED ASTHMA, UNCOMPLICATED SNOMED Code(s): 127560050 Plan: 21-year-old 1 para 0 woman at 39+ weeks gestation admitted for primary low transverse section secondary to breech presentation. The procedure has been reviewed with her and her family members including risks and benefits. All questions were answered. status is currently reassuring.
[2017-10-21] MEDS: LACTATED RINGERS 1,000 ML IV SCH (11:32)
[2017-10-21] MEDS ORDERED: PROCHLORPERAZINE SUPPOSITORY 25 MG SUPP RECTAL ONE (11:53)
[2017-10-21] MEDS ORDERED: diphenhydrAMINE 50 MG/ML 1 ML VIAL ONE (11:53)
[2017-10-21] MEDS ORDERED: NALBUPHINE 10 MG/ML VIAL (10ML MDV) ONE (11:53)
[2017-10-21] MEDS ORDERED: ONDANSETRON 4 MG/2 ML VIAL ONE (11:53)
[2017-10-21] MEDS ORDERED: OXYTOCIN 10 UNIT/ML 1 ML VIAL ONE (11:53)
[2017-10-21] MEDS ORDERED: DEXAMETHASONE SOD PHOS (MDV) 100 MG/10 ML VIAL ONE (11:53)
[2017-10-21] MEDS ORDERED: PHENYLEPHRINE-0.9% NACL SYG 1 MG/10 ML SYRINGE ONE (11:53)
[2017-10-21] MEDS ORDERED: ACETAMINOPHEN IV (For NPO) 1,000 MG/100 ML VIAL ONE (11:53)
[2017-10-21] MEDS ORDERED: diphenhydrAMINE 50 MG/ML 1 ML VIAL IVP PRN ×2 (12:39)
[2017-10-21] MEDS ORDERED: NALOXONE 0.4 MG/ML 1 ML VIAL IV PRN (12:39)
[2017-10-21] MEDS ORDERED: ZOLPIDEM 5 MG TAB PO PRN (12:39)
[2017-10-21] MEDS ORDERED: ONDANSETRON 4 MG/2 ML VIAL IVP PRN (12:39)
[2017-10-21] MEDS ORDERED: diphenhydrAMINE 50 MG CAP PO PRN (12:39)
[2017-10-21] MEDS ORDERED: diphenhydrAMINE 25 MG CAP PO PRN (12:39)
[2017-10-21] MEDS ORDERED: HYDROcodone/APAP 5-325MG 1 EACH TAB PO PRN (12:39)
[2017-10-21] MEDS ORDERED: METOCLOPRAMIDE 5 MG/ML 2 ML VIAL IVP PRN (12:39)
--- NOTE | 2017-10-21 12:39 | P.OP ---
Date of Procedure: 10/21/17 Preoperative Diagnosis: Intrauterine at 39-3/7 weeks gestation Breech presentation Postoperative Diagnosis: Same Procedure(s) Performed: Primary low transverse section Anesthesia: spinal Surgeon: Destiny Sebastian Certified Pharmacy Technician #1: Chuyita Berger Estimated Blood Loss (ml): 1,000 IV fluids (ml): 900 Urine output (ml): 300 Pathology: none sent Condition: stable Disposition: floor Indications for Procedure: Breech presentation Operative Findings: Female infant in the mick breech presentation with Apgars of 8 at 1 minute and 8 at 5 minutes weighing 9 lbs. 2 oz., 41 and 40 g. Uterine atony was encountered. Otherwise normal uterus tubes and ovaries and three-vessel cord placenta. Description of Procedure: After the patient was met preoperatively and all questions were answered, she was taken to the operating room where spinal anesthetic was administered without incident. She was then positioned, prepped and draped in the dorsal supine position with a leftward tilt. Cuevas catheter was placed. After anesthetic was confirmed adequate, a low transverse skin incision was made. This was carried down to the underlying fascia both sharply and with the electrocautery. The fascia was then incised in the midline and extended bilaterally with the Olivares scissors. The superior aspect of the fascial incision was elevated and the underlying rectus muscles dissected off sharply and with the electrocautery. The inferior aspect of the fascial incision was also elevated and the underlying rectus muscles dissected off sharply. The muscles were adherent in the midline. These were bluntly and the peritoneum was tented up with hemostats. The peritoneum was entered sharply with the Metzenbaum scissors. The peritoneal incision was extended inferiorly and superiorly with good visualization of the bladder. The bladder blade was placed. The vesicouterine peritoneum was identified, tented up and entered sharply, the bladder flap was created both sharply and digitally. A low transverse uterine incision was then made sharply and carried down to the underlying amniotic membranes. Membranes were ruptured and clear fluid was noted. The uterine incision was extended bilaterally bluntly. The infant's feet were grasped and delivered from the incision. With gentle traction the infant was delivered to the level of the scapula. With rotation the anterior and posterior shoulders were then delivered. Nuchal cord 1 was noted. The resting. Delivered with easy flexion of the head. The nose and mouth were bulb suctioned. And cut and the infant was taken to the warmer. An intact, three-vessel cord placenta was then manually removed and the uterus was exteriorized. The uterus was cleared of all clot and debris. The uterine incision was delineated with Flores clamps. There was some uterine atony that was managed with Pitocin and uterine massage. The uterine incision was then closed in a running locked fashion with 0 Vicryl suture. Additional figure -of-eight sutures were placed where necessary along the incision for hemostasis. The uterus was then returned to the abdomen and the gutters were cleared of all clot and debris. The uterine incision was reinspected and Bovie electrocautery was utilized were necessary for hemostasis. The fascial edges, peritoneal edges and rectus muscles were inspected and Bovie electrocautery utilized were necessary for hemostasis. The fascia was then closed in a running fashion with 0 Vicryl suture. The subcuticular tissue was copiously suction irrigated and Bovie electrocautery utilized were necessary for hemostasis. 3-0 Vicryl suture was utilized to reapproximate the subcuticular tissue. The skin was then closed in a subcutaneous fashion with 4-0 Vicryl suture. All counts reported to me as correct by the operating room staff at the end of the procedure. The patient received antibiotics preoperatively and Pitocin following cord clamp. Mother and infant were both transported from the room in stable condition.
[2017-10-21] MEDS ORDERED: IBUPROFEN IV 800 MG in SODIUM CHLORIDE 0.9% 250 ML IV PRN (12:41)
[2017-10-21] MEDS ORDERED: OXYTOCIN 20 UNITS/1000 ML NS 1,000 ML IV SCH (12:45)
[2017-10-21] MEDS ORDERED: LACTATED RINGERS 1,000 ML IV SCH (12:45)
[2017-10-21] MEDS: SIMETHICONE 80 MG CHEWABLE PO SCH (21:08)
[2017-10-21] MEDS: SENNOSIDES-DOCUSATE SODIUM 1 EACH TAB PO SCH (21:08)
[2017-10-22] MEDS: IBUPROFEN 600 MG TAB PO PRN ×3 (00:11→14:04)
[2017-10-22] MEDS: LACTATED RINGERS 1,000 ML IV SCH (00:49)
[2017-10-22] MEDS: ACETAMINOPHEN TAB 325 MG TAB PO PRN ×3 (03:09→16:55)
[2017-10-22 07:13] LABS: Basophils # (A) 0.1 k/uL (0-0.2); Basophils % (A) 1 %; Eosinophils # (A) 0.3 k/uL (0-0.7); Eosinophils % (A) 3 %; HCT 20.9 % (34.0-46.0); Hypochromasia Moderate; Lymphocytes # (A) 1.7 k/uL (1.0-4.8); Lymphocytes % (A) 22 %; MCH 24.7 pg (25.0-35.0); MCHC 31.3 g/dL (31.0-37.0); MCV 78.9 fL (80.0-100.0); Mean Platelet Volume 8.5; Monocytes # (A) 0.7 k/uL (0-1.0); Monocytes % (A) 9 %; Neutrophils # (A) 4.8 k/uL (1.3-7.7); Neutrophils % (A) 62 %; Platelet Count 184 k/uL (150-450); RBC 2.65 m/uL (3.80-5.40); RDW 15.1 % (11.5-15.5); WBC 7.7 k/uL (4.0-11.0)
[2017-10-22] MEDS: SENNOSIDES-DOCUSATE SODIUM 1 EACH TAB PO SCH ×2 (07:41→20:31)
[2017-10-22 07:43] LABS: HGB 6.5 gm/dL (11.4-16.0)
--- NOTE | 2017-10-22 08:34 | P.PNOBGPC ---
Subjective - Subjective Principal diagnosis: Postop day 1 Interval history: Feeling well overnight. Denies heavy vaginal bleeding. Ambulating without difficulty, no dizziness or lightheadedness. Tolerating general diet. Voiding spontaneously. Patient reports: Reports appetite normal, Reports voiding normally, Reports pain well controlled, Reports ambulating normally, Denies dizzy ambulation, Denies nauseated [place]: doing well Objective - Vital Signs Latest vital signs: Vital Signs Temp Pulse Resp BP Pulse Ox 10/22/17 04:00 98.4 F 64 14 118/66 100 10/22/17 00:00 98.1 F 79 16 119/59 97 10/21/17 22:10 98 10/21/17 20:00 98.6 F 72 16 120/70 98 10/21/17 16:00 97.4 F L 84 18 114/72 98 10/21/17 14:39 97.6 F 75 17 111/65 100 10/21/17 14:09 64 18 116/70 99 10/21/17 13:39 68 18 125/67 98 10/21/17 13:24 60 17 122/68 98 10/21/17 13:09 64 18 121/67 98 10/21/17 12:54 82 18 125/64 98 10/21/17 12:39 97.7 F 89 18 130/74 97 10/21/17 10:41 98.4 F 104 H 18 99 Intake and Output 10/21/17 10/22/17 10/22/17 22:59 06:59 14:59 Intake Total 1000 Output Total 1000 300 Balance -1000 700 Intake: Intake, IV Titration 1000 Amount Oxytocin 20 Units/1000 ml 1000 Ns 1,000 ml @ Per Protocol IV .Q0M [facility] Rx#: [id number] Output: Urine 1000 300 Uretheral (Cuevas) 200 Other: Voiding Method Indwelling Catheter # Voids 1 - Exam Extremities: Present: normal, edema Abdomen: Present: normal appearance, soft. Absent: tenderness Incision: Present: normal, dry, intact, dressed Uterus: Present: normal, firm. Absent: bogginess, tenderness - Labs Labs: Abnormal Lab Results - Last 24 Hours (Table) 10/21/17 10/22/17 Range/Units 10:30 06:49 RBC 3.69 L 2.65 L (3.80-5.40) m/uL Hgb 9.3 L 6.5 L* D (11.4-16.0) gm/dL Hct 28.7 L 20.9 L (34.0-46.0) % MCV 77.8 L 78.9 L (80.0-100.0) fL MCH 24.7 L (25.0-35.0) pg Assessment and Plan (1) 39 weeks gestation of Current Visit: Yes Status: Acute Code(s): Z3A.39 - 39 WEEKS GESTATION OF SNOMED Code(s): 65442553 (2) Breech presentation Current Visit: Yes Status: Acute Code(s): O32.1XX0 - MATERNAL CARE FOR BREECH PRESENTATION, UNSP SNOMED Code(s): 5216513 (3) Anemia Narrative/Plan: Acute postop on chronic gestational anemia. She is asymptomatic and her vital signs are stable. Start iron 325 mg twice a day with stool softener. Repeat CBC in a.m. Current Visit: Yes Status: Acute Code(s): D64.9 - ANEMIA, UNSPECIFIED SNOMED Code(s): 954892190 (4) Asthma Current Visit: Yes Status: Acute Code(s): J45.909 - UNSPECIFIED ASTHMA, UNCOMPLICATED SNOMED Code(s): 827458917 (5) S/P section Narrative/Plan: Postop day 1 status post primary low transverse section for breech presentation. Anemia as discussed above. Otherwise routine care. Current Visit: Yes Status: Acute Code(s): Z98.891 - HISTORY OF UTERINE SCAR FROM PREVIOUS SURGERY SNOMED Code(s): 914211193
[2017-10-22] MEDS: FERROUS SULFATE 325 MG TAB PO SCH ×2 (08:50→17:54)
[2017-10-22] MEDS ORDERED: SIMETHICONE 80 MG CHEWABLE PO PRN (10:13)
[2017-10-22] MEDS ORDERED: clonazePAM 0.5 MG TAB PO PRN (10:36)
[2017-10-22] MEDS: SIMETHICONE 80 MG CHEWABLE PO SCH (10:42)
[2017-10-22] MEDS: DULoxetine HCL 20 MG CAPSULE.DR PO SCH (11:16)
[2017-10-23 00:16] VITALS: RESP 16
[2017-10-23] MEDS: IBUPROFEN 600 MG TAB PO PRN (02:52)
[2017-10-23 06:03] LABS: HCT 21.6 % (34.0-46.0); Hypochromasia Marked; MCH 25.7 pg (25.0-35.0); MCHC 31.9 g/dL (31.0-37.0); MCV 80.5 fL (80.0-100.0); Mean Platelet Volume 7.7; Platelet Count 215 k/uL (150-450); RBC 2.69 m/uL (3.80-5.40); RDW 15.1 % (11.5-15.5); WBC 8.3 k/uL (4.0-11.0)
[2017-10-23 06:04] LABS: HGB 6.9 gm/dL (11.4-16.0)
[2017-10-23] MEDS: ACETAMINOPHEN TAB 325 MG TAB PO PRN (07:36)
[2017-10-23] MEDS: FERROUS SULFATE 325 MG TAB PO SCH (07:44)
[2017-10-23] MEDS: DULoxetine HCL 20 MG CAPSULE.DR PO SCH (07:44)
--- NOTE | 2017-10-23 08:03 | P.DS ---
Providers Date of admission: 10/21/17 10:05 Expected date of discharge: 10/23/17 Attending physician: Merly Lira Primary care physician: Stated None - Discharge Diagnosis(es) (1) 39 weeks gestation of Current Visit: Yes Status: Acute (2) Breech presentation Current Visit: Yes Status: Acute (3) Anemia Current Visit: Yes Status: Acute (4) Asthma Current Visit: Yes Status: Acute (5) S/P section Current Visit: Yes Status: Acute Hospital Course: This is a 21-year-old 1 now para 1 woman who is admitted at 39+ weeks gestation for scheduled primary low transverse section for breech presentation. She was admitted and was taken to the operating room where she was delivered of a liveborn female from the mick breech presentation with Apgars of 8 at 1 minute and 8 at 5 minutes weighing 9 lbs. 2 oz. She did have some uterine atony with an EBL of 1000 mL's. Her postoperative course was unremarkable. By the morning of postoperative day #1 she was ambulating and voiding spontaneously. Her hemoglobin was postoperatively was 6.5 with a preoperative hemoglobin of 9.3. She had no active bleeding. She was started on iron twice a day. By postoperative day #2 her hemoglobin on remained stable at 6.9. She was ambulating and voiding without difficulty. Her incision was well healing. Her vital signs were stable. She was restarted on her Klonopin and Cymbalta for bipolar disorder. She was discharged home with routine instructions for postoperative care and follow-up. Procedures: Primary low transverse section Patient Condition at Discharge: Good Plan - Discharge Summary New Discharge Prescriptions: New Acetaminophen Tab [Tylenol] 650 mg PO Q4HR PRN tab PRN Reason: Mild Pain Or Fever >= 100.5 DULoxetine HCL [Cymbalta] 20 mg PO DAILY #60 capsule.dr Ferrous Sulfate [Iron (65 MG Elemental)] 325 mg PO BID-W/MEALS tab Ibuprofen [Motrin] 600 mg PO Q6HR PRN tab PRN Reason: Mild Pain Or Fever >= 100.5 No Action Albuterol Inhaler [Ventolin Hfa Inhaler] 2 puff INHALATION RT-QID PRN PRN Reason: Shortness Of Breath Pnv,Calcium 72/Iron/Folic Acid [ Plus Tablet] 1 tab PO DAILY Ferrous Sulfate [Feosol] 325 mg PO DAILY Discharge Medication List Albuterol Inhaler [Ventolin Hfa Inhaler] 2 puff INHALATION RT-QID PRN 10/01/16 [ History] Pnv,Calcium 72/Iron/Folic Acid [ Plus Tablet] 1 tab PO DAILY 10/04/17 [ History] Ferrous Sulfate [Feosol] 325 mg PO DAILY 10/18/17 [History] Acetaminophen Tab [Tylenol] 650 mg PO Q4HR PRN tab 10/23/17 [Rx] DULoxetine HCL [Cymbalta] 20 mg PO DAILY #60 capsule. 10/23/17 [Rx] Ferrous Sulfate [Iron (65 MG Elemental)] 325 mg PO BID-W/MEALS tab 10/23/17 [Rx ] Ibuprofen [Motrin] 600 mg PO Q6HR PRN tab 10/23/17 [Rx] Follow up Appointment(s)/Referral(s): Merly Lira DO [Doctor of Osteopathic Medicine] - 2 Weeks Activity/Diet/Wound Care/Special Instructions: Follow-up in 2 weeks after surgery in the office. Call the office with any concerning signs or symptoms including fever greater than 101, severe abdominal pain, heavy vaginal bleeding, signs of wound infection, increased swelling or redness of the lower extremities, signs of depression. No driving for 2 weeks after surgery. No heavy lifting or vigorous activity until reevaluated in the office. No intercourse for 6 weeks after delivery. Discharge Disposition: HOME SELF-CARE
[2017-10-23 08:31] VITALS: BP 112/68; PULSE 78; TEMP 98.3
[2017-10-23] MEDS: SENNOSIDES-DOCUSATE SODIUM 1 EACH TAB PO SCH (08:32)
== END 2017-10-23 12:10 | disposition home or self-care (01) | DRG 765 ==
LOC: 4FBP 10:05
PROVIDERS: ADMIT Obstetrics & Gynecology Obstetrics; ATTEND Obstetrics & Gynecology Obstetrics
PROC: 10D00Z1 Extraction of Products of Conception, Low, Open Approach (ICD-10-PCS; principal; 2017-10-21 12:00)
DX: O32.1XX0 Maternal care for breech presentation, not applicable or unspecified (principal); O99.354 Diseases of the nervous system complicating childbirth; O62.2 Other uterine inertia; O69.81X0 Labor and delivery complicated by cord around neck, without compression, not applicable or unspecified; Z3A.39 39 weeks gestation of pregnancy; Z37.0 Single live birth; O99.52 Diseases of the respiratory system complicating childbirth; J45.909 Unspecified asthma, uncomplicated; O99.62 Diseases of the digestive system complicating childbirth; K21.9 Gastro-esophageal reflux disease without esophagitis; O99.344 Other mental disorders complicating childbirth; F90.9 Attention-deficit hyperactivity disorder, unspecified type; G40.909 Epilepsy, unspecified, not intractable, without status epilepticus; O99.02 Anemia complicating childbirth; D64.9 Anemia, unspecified; F31.9 Bipolar disorder, unspecified; F41.0 Panic disorder [episodic paroxysmal anxiety]; L30.9 Dermatitis, unspecified; Z79.899 Other long term (current) drug therapy; Z88.1 Allergy status to other antibiotic agents; Z91.030 Bee allergy status; Z88.5 Allergy status to narcotic agent; Z91.018 Allergy to other foods; Z87.01 Personal history of pneumonia (recurrent)
CPT/HCPCS: 85025; 85027; 86850; 86900; 86901

== ENCOUNTER 2020-11-06 17:44 | Outpatient (CLI) | payer OTHER ==
[2020-11-06] MEDS: LACTATED RINGERS 1,000 ML IV SCH ×2 (18:53→20:21)
[2020-11-06] MEDS ORDERED: FLUCONAZOLE 150 MG TAB PO STA (19:48)
[2020-11-06 20:51] VITALS: BP 132/84; PULSE 85; RESP 16; TEMP 97.2
--- NOTE | 2020-12-18 13:15 | P.MSEPDOC ---
Presenting Problems - Arrival Data Date of Arrival on Unit: 11/06/20 Time of Arrival on Unit: 17:44 Mode of Transport: Ambulatory - Complaint OB-Reason for Admission/Chief Complaint: Possible Onset of Labor Comment: pt started rianna around noon, got stronger around 1500. Medical History - Information : 2 Para: 1 Term: 1 : 0 Abortions: Spontaneous or Elective: 0 Number of Living Children: 1 - Gestational Age Gestational Age by AMELIA (wks/days): 35 Weeks and 3 Days - History Complications: Prior Review of Systems - Review of Systems Constitutional: No problems Breast: No problems ENT: No problems Cardiovascular: No problems Respiratory: No problems Gastrointestinal: No problems Genitourinary: Dysuria Musculoskeletal: No problems Neurological: No problems Skin: No problems Comment: currently takes Keflex for a UTI Vital Signs - Temperature Temperature: 97.2 F Temperature Source: Temporal Artery Scan - Pulse Right Sitting Pulse Rate: 85 Pulse Assessment Method: Automatic Cuff - Respirations Respiratory Rate: 16 Oxygen Delivery Method: Room Air - Blood Pressure Right Arm Sitting Blood Pressure: 132/84 Blood Pressure Mean: 100 Blood Pressure Source: Automatic Cuff Medical Screen Scoring - Cervical Exam Dilation (cm): 0 Membranes: Intact - Uterine Contractions Frequency From (mins): 3 Frequency To (mins): 7 Duration From (seconds): 40 Duration To (seconds): 60 Intensity: Mild Resting: Soft to palpation - Assessment - Baby A Baseline FHR: 135 Heart Rate - NICHD Category: Category I (Normal) NST: Reactive Physician Notification - Physician Notified Physician Notified Date: 11/06/20 Physician Notified Time: 18:32 Physician: Merly Lira New Order Received: Yes - Notification Comment Comment: IV hydration ordered Maternal Triage Index - Maternal Triage Index Presenting for scheduled procedure w/no complaint: No - Stat/Priority 1 Stat Priority 1: No - Urgent/Priority 2 Urgent Priority 2: No - Prompt/Priority 3 Prompt Priority 3: Yes Criteria Met for Priority 3: Pankaj notified at 1832 Disposition - Disposition OB Disposition: Discharge to home, Written follow up instructions reviewed Discharge Date: 11/06/20 Discharge Time: 20:30 I agree with the RN Medical Screening Exam: Yes Case reviewed; plan agreed upon as documented in EMR&OBIX.: Yes Diagnosis: FALSE LABOR BEFORE 37 COMPLETED WEEKS OF GEST, THIRD TRI
== END 2020-11-06 20:30 | disposition home or self-care (01) ==
LOC: FBPOP 17:44
PROVIDERS: ATTEND Obstetrics & Gynecology Obstetrics
DX: O47.03 False labor before 37 completed weeks of gestation, third trimester (principal); Z3A.35 35 weeks gestation of pregnancy; Z91.030 Bee allergy status; Z88.2 Allergy status to sulfonamides; Z88.1 Allergy status to other antibiotic agents; Z88.5 Allergy status to narcotic agent; Z88.6 Allergy status to analgesic agent; Z91.018 Allergy to other foods; Z91.012 Allergy to eggs
CPT/HCPCS: 59025; 96360; G0463; 99213

== ENCOUNTER 2020-11-07 18:25 | Outpatient (CLI) | payer OTHER ==
[2020-11-07] MEDS ORDERED: TERBUTALINE 1 MG/ML VIAL SQ PRN (19:22)
[2020-11-07] MEDS ORDERED: LACTATED RINGERS 1,000 ML IV ONE (19:22)
[2020-11-07] MEDS ORDERED: BETAMET ACET-BETAMETH SOD PHOS 6 MG/ML MDV IM SCH (19:30)
[2020-11-07] MEDS ORDERED: LACTATED RINGERS 1,000 ML IV SCH (19:30)
[2020-11-07 21:25] VITALS: BP 132/80; PULSE 81; RESP 16; TEMP 98.7
--- NOTE | 2020-11-15 08:59 | P.MSEPDOC ---
Presenting Problems - Arrival Data Date of Arrival on Unit: 11/07/20 Time of Arrival on Unit: 18:25 Mode of Transport: Ambulatory - Complaint OB-Reason for Admission/Chief Complaint: Possible Onset of Labor Comment: Pt presents to triage with c/o contx that started around 1730. Pt states her mom was timing contractions and they were approx 1-2 minutes apart. Pt states she was in triage last night as well and she is currently being treated for a UTI and yeast infection Medical History - Information : 2 Para: 1 Term: 1 : 0 Abortions: Spontaneous or Elective: 0 Number of Living Children: 1 - Gestational Age Gestational Age by AMELIA (wks/days): 35 Weeks and 4 Days - History Complications: Prior Review of Systems - Review of Systems Constitutional: No problems Breast: No problems ENT: No problems Cardiovascular: No problems Respiratory: No problems Gastrointestinal: No problems Genitourinary: No problems Musculoskeletal: No problems Neurological: No problems Skin: No problems Vital Signs - Temperature Temperature: 98.7 F Temperature Source: Oral - Pulse Pulse Oximetery Pulse Rate: 81 Pulse Assessment Method: Automatic Cuff - Respirations Respiratory Rate: 16 Oxygen Delivery Method: Room Air O2 Sat by Pulse Oximetry: 99 - Blood Pressure Right Arm Blood Pressure: 132/80 Blood Pressure Mean: 97 Blood Pressure Source: Automatic Cuff Medical Screen Scoring - Cervical Exam Dilation (cm): 0 Effacement (%): 50 Station: -3 Membranes: Intact - Uterine Contractions Frequency From (mins): 2 Frequency To (mins): 9 Duration From (seconds): 45 Duration To (seconds): 110 Intensity: Mild Resting: Soft to palpation - Assessment - Baby A Baseline FHR: 130 Heart Rate - NICHD Category: Category I (Normal) NST: Reactive Physician Notification - Physician Notified Physician Notified Date: 11/07/20 Physician Notified Time: 19:08 Physician: Destiny Sebastian New Order Received: Yes - Notification Comment Comment: Dr. Sebastian notified by Pavithra Gray RN. Orders received to start IV, administer LR bolus, give celestone and terbutaline per protocol, keep pt on monitor and recheck cervix in [address] Sebastian updated on pt status at 2047 re: celestone, 1 dose of terbutaline and lactated ringer administration, SVE, vital signs, pain, contx pattern, status and irregular heartbeat. Orders received to d/c pt home. Pt is to be off work tomorrow and will return to triage tomorrow night for second dose of celestone around 2009. Orders received for pt to increase oral fluids and keep scheduled appt with Dr. Lira 11/10. Maternal Triage Index - Maternal Triage Index Presenting for scheduled procedure w/no complaint: No - Stat/Priority 1 Stat Priority 1: No - Urgent/Priority 2 Urgent Priority 2: No - Prompt/Priority 3 Prompt Priority 3: Yes Criteria Met for Priority 3: >34 weeks planned, elective repeat with regular contractions Disposition - Disposition OB Disposition: Discharge to home Discharge Date: 11/07/20 Discharge Time: 21:04 I agree with the RN Medical Screening Exam: Yes Case reviewed; plan agreed upon as documented in EMR&OBIX.: Yes Diagnosis: labor
== END 2020-11-07 21:04 | disposition home or self-care (01) ==
LOC: FBPOP 18:25
PROVIDERS: ATTEND Obstetrics & Gynecology
DX: O60.03 Preterm labor without delivery, third trimester (principal); Z3A.35 35 weeks gestation of pregnancy; Z88.1 Allergy status to other antibiotic agents; Z88.2 Allergy status to sulfonamides; Z88.5 Allergy status to narcotic agent; Z91.018 Allergy to other foods; Z91.030 Bee allergy status
CPT/HCPCS: 59025; 96360; 96372; G0463; J3105; J0702; 99214

== ENCOUNTER 2020-11-08 19:57 | Outpatient (CLI) | payer OTHER ==
[2020-11-08] MEDS ORDERED: BETAMET ACET-BETAMETH SOD PHOS 6 MG/ML MDV IM SCH (20:30)
[2020-11-08 21:08] VITALS: BP 129/64; PULSE 109; RESP 16; TEMP 98.6
--- NOTE | 2020-11-15 08:58 | P.MSEPDOC ---
Presenting Problems - Arrival Data Date of Arrival on Unit: 11/08/20 Time of Arrival on Unit: 20:00 Mode of Transport: Ambulatory - Complaint OB-Reason for Admission/Chief Complaint: Other Comment: Patient comes to triage for follow up celestone Medical History - Information : 2 Para: 1 Term: 1 : 0 Abortions: Spontaneous or Elective: 0 Number of Living Children: 1 - Gestational Age Gestational Age by AMELIA (wks/days): 35 Weeks and 5 Days Review of Systems - Review of Systems Constitutional: No problems Breast: No problems ENT: No problems Cardiovascular: No problems Respiratory: No problems Gastrointestinal: No problems Genitourinary: No problems Musculoskeletal: No problems Neurological: No problems Skin: No problems Vital Signs - Temperature Temperature: 98.6 F Temperature Source: Temporal Artery Scan - Pulse Right Brachial Pulse Rate: 109 Pulse Assessment Method: Automatic Cuff - Respirations Respiratory Rate: 16 Oxygen Delivery Method: Room Air O2 Sat by Pulse Oximetry: 98 - Blood Pressure Right Arm Blood Pressure: 129/64 Blood Pressure Mean: 85 Blood Pressure Source: Automatic Cuff Medical Screen Scoring - Assessment - Baby A Baseline FHR: 125 Heart Rate - NICHD Category: Category I (Normal) NST: Reactive Physician Notification - Physician Notified Physician Notified Date: 11/08/20 Physician Notified Time: 20:00 Physician: Destiny Sebastian Order Received: Yes - Notification Comment Comment: Patient approved for discharge and follow up in office. Maternal Triage Index - Maternal Triage Index Presenting for scheduled procedure w/no complaint: Yes - Scheduled/Requesting Priority 5 Scheduled/Requesting Priority 5: Yes Criteria Met for Priority 5: patient presents for follow up celestone Disposition - Disposition OB Disposition: Discharge to home Discharge Date: 11/08/20 Discharge Time: 20:46 I agree with the RN Medical Screening Exam: Yes Case reviewed; plan agreed upon as documented in EMR&OBIX.: Yes Diagnosis: Contractions
== END 2020-11-08 20:46 ==
LOC: FBPOP 19:57
PROVIDERS: ATTEND Obstetrics & Gynecology
DX: O60.03 Preterm labor without delivery, third trimester (principal); Z3A.35 35 weeks gestation of pregnancy; Z91.018 Allergy to other foods; Z91.030 Bee allergy status; Z91.012 Allergy to eggs; Z88.2 Allergy status to sulfonamides; Z88.1 Allergy status to other antibiotic agents; Z88.5 Allergy status to narcotic agent; Z88.6 Allergy status to analgesic agent
CPT/HCPCS: 96372; J0702; 99213

== ENCOUNTER 2020-11-23 01:47 | Emergency (ER) | payer OTHER ==
[2020-11-23] MEDS ORDERED: ONDANSETRON 4 MG/2 ML VIAL IVP STA ×2 (02:48→05:26)
[2020-11-23] MEDS ORDERED: diphenhydrAMINE 50 MG/ML 1 ML VIAL IVP STA (02:48)
--- NOTE | 2020-11-23 02:48 | ED ---
Nausea/Vomiting/Diarrhea HPI - General Chief complaint: Nausea/Vomiting/Diarrhea Stated complaint: Vomiting, Cough, 38wks preg Time Seen by Provider: 11/23/20 02:27 Source: patient, RN notes reviewed, old records reviewed Mode of arrival: wheelchair Limitations: no limitations - History of Present Illness Initial comments: This is a 25-year-old female to the emergency department today. Patient is coming in with 6 episodes of vomiting unable to keep anything down today. Unable to keep anything down throughout the day. Patient is 38 weeks scheduled for next week. Patient is actively vomiting on arrival to emergency bar. No recent travel history other patient does have positive sick contact in which includes her brother who she lives with and is positive for coronavirus. Patient is without fever without abdominal pain without shortness of breath without cough. No diarrhea. MD complaint: nausea, vomiting, abdominal pain -: hour(s) Description of Vomiting: watery Description of Diarrhea: water Associated Abdominal Pain: Yes Location: diffuse Radiation: none, eyes Severity scale (1-10): 2 Quality: cramping, aching Consistency: intermittent Improves with: none Worsens with: none Context: other (Positive ) Associated Symptoms: denies other symptoms - Related Data Home Medications Medication Instructions Recorded Confirmed Amoxic-Pot Clav 875-125Mg 1 tab PO BID 12/01/20 12/01/20 [Augmentin 875-125] Allergies Allergy/AdvReac Type Severity Reaction Status Date / Time almond oil Allergy Anaphylaxis,throat Verified 12/01/20 10:15 swelling bee venom protein (honey bee) Allergy Anaphylaxis Verified 12/01/20 10:15 coconut Allergy Anaphylaxis Verified 12/01/20 10:15 egg Allergy Anaphylaxis Verified 12/01/20 10:15 sulfamethoxazole Allergy Vomiting Verified 12/01/20 10:15 [From Bactrim] trimethoprim [From Bactrim] Allergy Vomiting Verified 12/01/20 10:15 ciprofloxacin [From Cipro] AdvReac Nausea & Verified 12/01/20 10:15 Vomiting ketorolac [From Toradol] AdvReac Nausea & Verified 12/01/20 10:15 Vomiting morphine AdvReac Nausea & Verified 12/01/20 10:15 Vomiting,"mean" Review of Systems ROS Statement: Those systems with pertinent positive or pertinent negative responses have been documented in the HPI. ROS Other: All systems not noted in ROS Statement are negative. Past Medical History Past Medical History: Asthma, GERD/Reflux, Pneumonia, Seizure Disorder, Skin Disorder Additional Past Medical History / Comment(s): complex seizure distorder until 8 yrs old, heart murmer, eczema, anemia, pneumonia 9th grade History of Any Multi-Drug Resistant Organisms: None Reported Past Surgical History: Appendectomy, Ear Surgery Past Anesthesia/Blood Transfusion Reactions: Motion Sickness Past Psychological History: ADD/ADHD, Anxiety, Bipolar, Depression, Panic Disorder Smoking Status: Never smoker Past Alcohol Use History: None Reported Past Drug Use History: None Reported - Past Family History Mother Family Medical History: No Reported History General Exam Limitations: no limitations Course Vital Signs 11/23/20 11/23/20 11/23/20 02:00 02:59 05:46 Temperature 98.6 F Pulse Rate 124 H 118 H 111 H Respiratory 20 18 18 Rate Blood Pressure 106/69 125/87 121/75 O2 Sat by Pulse 95 95 95 Oximetry 11/23/20 11/23/20 06:26 07:25 Temperature 98.7 F Pulse Rate 117 H 118 H Respiratory 18 18 Rate Blood Pressure 121/69 104/67 O2 Sat by Pulse 95 97 Oximetry - Reevaluation(s) Reevaluation #1: 11/23/20 06:15 Medical record is reviewed Reevaluation #2: 11/23/20 06:15 Patient's nausea is improved no active vomiting Reevaluation #3: 11/23/20 06:15 Patient does have nonstress test here in the ER which is reactive - Consultations Consultation #1: Spoke with Dr. Banegas for this patient, Dr. Lira, aware of coronavirus status as well as MST, from his standpoint okay for discharge Medical Decision Making - Lab Data Result diagrams: 11/23/20 03:23 11/23/20 03:23 Lab Results 11/23/20 11/23/20 11/23/20 Range/Units 03:23 03:23 03:23 WBC 3.8 (3.8-10.6) k/uL RBC 4.29 (3.80-5.40) m/uL Hgb 10.4 L (11.4-16.0) gm/dL Hct 32.4 L (34.0-46.0) % MCV 75.4 L (80.0-100.0) fL MCH 24.3 L (25.0-35.0) pg MCHC 32.3 (31.0-37.0) g/dL RDW 13.8 (11.5-15.5) % Plt Count 178 (150-450) k/uL MPV 8.9 Neutrophils % 74 % Lymphocytes % 19 % Monocytes % 4 % Eosinophils % 0 % Basophils % 0 % Neutrophils # 2.8 (1.3-7.7) k/uL Lymphocytes # 0.7 L (1.0-4.8) k/uL Monocytes # 0.1 (0-1.0) k/uL Eosinophils # 0.0 (0-0.7) k/uL Basophils # 0.0 (0-0.2) k/uL Microcytosis Slight PT 9.6 (9.0-12.0) sec INR 0.9 (<1.2) APTT 29.0 (22.0-30.0) sec Sodium 131 L (137-145) mmol/L Potassium 3.2 L (3.5-5.1) mmol/L Chloride 102 (98-107) mmol/L Carbon Dioxide 16 L (22-30) mmol/L Anion Gap 13 mmol/L BUN 7 (7-17) mg/dL Creatinine 0.64 (0.52-1.04) mg/dL Est GFR (CKD-EPI)AfAm >90 (>60 ml/min/1.73 sqM) Est GFR (CKD-EPI)NonAf >90 (>60 ml/min/1.73 sqM) Glucose 73 L (74-99) mg/dL Plasma Lactic Acid Ty (0.7-2.0) mmol/L Calcium 8.3 L (8.4-10.2) mg/dL Magnesium 1.7 (1.6-2.3) mg/dL Total Bilirubin 0.9 (0.2-1.3) mg/dL AST 31 (14-36) U/L ALT 13 (4-34) U/L Alkaline Phosphatase 207 H (38-126) U/L Lactate Dehydrogenase 606 (313-618) U/L C-Reactive Protein 5.5 H (<1.0) mg/dL Total Protein 6.1 L (6.3-8.2) g/dL Albumin 3.2 L (3.5-5.0) g/dL Coronavirus (PCR) (Not Detectd) 11/23/20 11/23/20 Range/Units 03:23 03:23 WBC (3.8-10.6) k/uL RBC (3.80-5.40) m/uL Hgb (11.4-16.0) gm/dL Hct (34.0-46.0) % MCV (80.0-100.0) fL MCH (25.0-35.0) pg MCHC (31.0-37.0) g/dL RDW (11.5-15.5) % Plt Count (150-450) k/uL MPV Neutrophils % % Lymphocytes % % Monocytes % % Eosinophils % % Basophils % % Neutrophils # (1.3-7.7) k/uL Lymphocytes # (1.0-4.8) k/uL Monocytes # (0-1.0) k/uL Eosinophils # (0-0.7) k/uL Basophils # (0-0.2) k/uL Microcytosis PT (9.0-12.0) sec INR (<1.2) APTT (22.0-30.0) sec Sodium (137-145) mmol/L Potassium (3.5-5.1) mmol/L Chloride (98-107) mmol/L Carbon Dioxide (22-30) mmol/L Anion Gap mmol/L BUN (7-17) mg/dL Creatinine (0.52-1.04) mg/dL Est GFR (CKD-EPI)AfAm (>60 ml/min/1.73 sqM) Est GFR (CKD-EPI)NonAf (>60 ml/min/1.73 sqM) Glucose (74-99) mg/dL Plasma Lactic Acid Ty 1.0 (0.7-2.0) mmol/L Calcium (8.4-10.2) mg/dL Magnesium (1.6-2.3) mg/dL Total Bilirubin (0.2-1.3) mg/dL AST (14-36) U/L ALT (4-34) U/L Alkaline Phosphatase (38-126) U/L Lactate Dehydrogenase (313-618) U/L C-Reactive Protein (<1.0) mg/dL Total Protein (6.3-8.2) g/dL Albumin (3.5-5.0) g/dL Coronavirus (PCR) Detected A (Not Detectd) - EKG Data -: EKG Interpreted by Me (EKG shows sinus tachycardia 122 WV 160 QRS 92 QTC 475) Disposition Clinical Impression: 39 weeks gestation of , Coronavirus infection, Nausea & vomiting Disposition: HOME SELF-CARE Condition: Good Instructions (If sedation given, give patient instructions): Coronavirus Disease 2019 (COVID-19), Acute Nausea and Vomiting (ED) Is patient prescribed a controlled substance at d/c from ED?: No Referrals: None,Stated [Primary Care Provider] - 1-2 days
[2020-11-23 03:37] LABS: Basophils % (A) 0 %; Eosinophils % (A) 0 %; HCT 32.4 % (34.0-46.0); HGB 10.4 gm/dL (11.4-16.0); Lymphocytes # (A) 0.7 k/uL (1.0-4.8); Lymphocytes % (A) 19 %; MCH 24.3 pg (25.0-35.0); MCHC 32.3 g/dL (31.0-37.0); MCV 75.4 fL (80.0-100.0); Mean Platelet Volume 8.9; Microcytosis Slight; Monocytes # (A) 0.1 k/uL (0-1.0); Monocytes % (A) 4 %; Neutrophils # (A) 2.8 k/uL (1.3-7.7); Neutrophils % (A) 74 %; Platelet Count 178 k/uL (150-450); RBC 4.29 m/uL (3.80-5.40); RDW 13.8 % (11.5-15.5); WBC 3.8 k/uL (3.8-10.6)
[2020-11-23 03:46] LABS: INR 0.9 (<1.2); Prothrombin Time 9.6 sec (9.0-12.0)
[2020-11-23 04:08] LABS: ALT 13 U/L (4-34); AST 31 U/L (14-36); African American GFR (CKD) >90 (>60 ml/min/1.73 sqM); Albumin 3.2 g/dL (3.5-5.0); Alkaline Phosphatase 207 U/L (38-126); Anion Gap 13 mmol/L; Blood Urea Nitrogen 7 mg/dL (7-17); C Reactive Protein 5.5 mg/dL (<1.0); Calcium 8.3 mg/dL (8.4-10.2); Carbon Dioxide 16 mmol/L (22-30); Chloride 102 mmol/L (98-107); Glucose 73 mg/dL (74-99); LDH 606 U/L (313-618); Magnesium 1.7 mg/dL (1.6-2.3); Non-African American GFR(CKD) >90 (>60 ml/min/1.73 sqM); Potassium 3.2 mmol/L (3.5-5.1); Sodium 131 mmol/L (137-145); Total Bilirubin 0.9 mg/dL (0.2-1.3); Total Protein 6.1 g/dL (6.3-8.2)
[2020-11-23 04:25] VITALS: RESP 18
[2020-11-23] MEDS ORDERED: SODIUM CHLORIDE 0.9% 2,000 ML IV STA (04:31)
[2020-11-23] MEDS ORDERED: ONDANSETRON 4 MG ODT STARTER PACK 2 TAB BTL PO STA (06:13)
[2020-11-23] MEDS ORDERED: POTASSIUM BICARB-CITRIC ACID 25 MEQ TABLET.EFF PO ONE (06:15)
[2020-11-23] MEDS ORDERED: SODIUM CHLORIDE 0.9% 1,000 ML IV STA (06:16)
[2020-11-23 07:26] VITALS: BP 104/67; PULSE 118; TEMP 98.7
== END 2020-11-23 07:37 | disposition home or self-care (01) ==
LOC: EC 01:47
DX: O21.8 Other vomiting complicating pregnancy (principal); O98.513 Other viral diseases complicating pregnancy, third trimester; O99.513 Diseases of the respiratory system complicating pregnancy, third trimester; O99.343 Other mental disorders complicating pregnancy, third trimester; U07.1 COVID-19; J45.909 Unspecified asthma, uncomplicated; K21.9 Gastro-esophageal reflux disease without esophagitis; F41.9 Anxiety disorder, unspecified; F31.9 Bipolar disorder, unspecified; Z88.1 Allergy status to other antibiotic agents; Z88.2 Allergy status to sulfonamides; Z88.5 Allergy status to narcotic agent; Z90.49 Acquired absence of other specified parts of digestive tract; Z3A.38 38 weeks gestation of pregnancy
CPT/HCPCS: 99284; 96374; 96375; 96376; 96361 ×3; 36415; 93005; 80053; 83605; 83615; 83735; 85025; 85610; 85730; 86140; 87635; J1200; J2405; S0119

== ENCOUNTER 2020-11-28 15:44 | Emergency (ER) | payer OTHER ==
[2020-11-28 17:52] VITALS: RESP 18
[2020-11-28 18:20] LABS: Basophils # (A) 0.1 k/uL (0-0.2); Basophils % (A) 1 %; Eosinophils % (A) 0 %; HCT 37.6 % (34.0-46.0); HGB 12.2 gm/dL (11.4-16.0); Hypochromasia Slight; Lymphocytes # (A) 0.6 k/uL (1.0-4.8); Lymphocytes % (A) 8 %; MCH 24.2 pg (25.0-35.0); MCHC 32.4 g/dL (31.0-37.0); MCV 74.6 fL (80.0-100.0); Mean Platelet Volume 8.5; Microcytosis Slight; Monocytes # (A) 0.4 k/uL (0-1.0); Monocytes % (A) 4 %; Neutrophils # (A) 7.2 k/uL (1.3-7.7); Neutrophils % (A) 85 %; Platelet Count 273 k/uL (150-450); Poikilocytosis Slight; RBC 5.04 m/uL (3.80-5.40); RDW 14.3 % (11.5-15.5); WBC 8.5 k/uL (3.8-10.6)
[2020-11-28 18:30] LABS: ALT 15 U/L (4-34); AST 39 U/L (14-36); African American GFR (CKD) >90 (>60 ml/min/1.73 sqM); Albumin 3.2 g/dL (3.5-5.0); Alkaline Phosphatase 280 U/L (38-126); Anion Gap 16 mmol/L; Blood Urea Nitrogen 11 mg/dL (7-17); Calcium 8.7 mg/dL (8.4-10.2); Carbon Dioxide 14 mmol/L (22-30); Chloride 108 mmol/L (98-107); Glucose 89 mg/dL (74-99); Non-African American GFR(CKD) >90 (>60 ml/min/1.73 sqM); Potassium 3.2 mmol/L (3.5-5.1); Sodium 138 mmol/L (137-145); Total Bilirubin 1.4 mg/dL (0.2-1.3); Total Protein 6.5 g/dL (6.3-8.2)
[2020-11-28] MEDS ORDERED: SODIUM CHLORIDE 0.9% 2,000 ML IV ONE (19:29)
[2020-11-28] MEDS ORDERED: ONDANSETRON 4 MG/2 ML VIAL IVP STA (20:14)
[2020-11-28 21:00] LABS: Appearance,Urine Turbid (Clear); Bacteria,Urine Many /hpf; Bilirubin,Urine 1+ (Negative); Blood,Urine Small (Negative); Color,Urine Orange; Glucose,Urine (UA) Negative (Negative); Ketones,Urine 1+ (Negative); Leukocyte Esterase,Urine Large (Negative); Mucus,Urine Many /hpf; Nitrite,Urine Negative (Negative); Protein,Urine 1+ (Negative); RBC,Urine 14 /hpf (0-5); Specific Gravity,Urine 1.015 (1.001-1.035); Squamous Epithelial Cell,Urine 6 /hpf (0-4); WBC,Urine >182 /hpf (0-5)
[2020-11-28] MEDS ORDERED: ACETAMINOPHEN TAB 500 MG TAB PO STA (21:42)
--- NOTE | 2020-11-28 22:02 | ED ---
General Adult HPI - General Chief complaint: Nausea/Vomiting/Diarrhea Stated complaint: covid+, vomiting, 38 wks preg Time Seen by Provider: 11/28/20 19:29 Source: patient, RN notes reviewed Mode of arrival: ambulatory Limitations: no limitations - History of Present Illness Initial comments: This a 25-year-old female presents emergency Department chief complaint of nausea vomiting, positive COVID-19. Patient states that she was recently diagnosed she started with symptoms approximately a week ago. Patient was probably seen and diagnosed in emergency department. Patient states her [employer] is Dr. Lira, and is currently 38 weeks . Patient has no abdominal pain, vaginal bleeding vaginal discharge the usual. She hasn't complaints of back pain, flank pain, chest painor shortness of breath. She states she just cannot tolerate oral intake at this time. - Related Data Home Medications Medication Instructions Recorded Confirmed Nitrofurantoin Monohyd/M-Cryst 100 mg PO Q12HR 11/07/20 11/08/20 [Macrobid] Previous Rx's Medication Instructions Recorded Amoxicillin/Potassium Clav 1 tab PO Q12HR #14 tab 11/29/20 [Augmentin 875-125 Tablet] Allergies Allergy/AdvReac Type Severity Reaction Status Date / Time almond oil Allergy Anaphylaxis,throat Verified 11/28/20 17:52 swelling bee venom protein (honey bee) Allergy Anaphylaxis Verified 11/28/20 17:52 coconut Allergy Anaphylaxis Verified 11/28/20 17:52 egg Allergy Anaphylaxis Verified 11/28/20 17:52 sulfamethoxazole Allergy Vomiting Verified 11/28/20 17:52 [From Bactrim] trimethoprim [From Bactrim] Allergy Vomiting Verified 11/28/20 17:52 ciprofloxacin [From Cipro] AdvReac Nausea & Verified 11/28/20 17:52 Vomiting ketorolac [From Toradol] AdvReac Nausea & Verified 11/28/20 17:52 Vomiting morphine AdvReac Nausea & Verified 11/28/20 17:52 Vomiting,"mean" Review of Systems ROS Statement: Those systems with pertinent positive or pertinent negative responses have been documented in the HPI. ROS Other: All systems not noted in ROS Statement are negative. Past Medical History Past Medical History: Asthma, GERD/Reflux, Pneumonia, Seizure Disorder, Skin Disorder Additional Past Medical History / Comment(s): complex seizure distorder until 8 yrs old, heart murmer, eczema, anemia, pneumonia 9th grade History of Any Multi-Drug Resistant Organisms: None Reported Past Surgical History: Appendectomy, Ear Surgery Past Anesthesia/Blood Transfusion Reactions: Motion Sickness Past Psychological History: ADD/ADHD, Anxiety, Bipolar, Depression, Panic Disorder Smoking Status: Never smoker Past Alcohol Use History: None Reported Past Drug Use History: None Reported - Past Family History Mother Family Medical History: No Reported History General Exam Limitations: no limitations General appearance: alert, in no apparent distress Head exam: Present: atraumatic, normocephalic, normal inspection Eye exam: Present: normal appearance, PERRL, EOMI. Absent: scleral icterus, conjunctival injection, periorbital swelling ENT exam: Present: normal exam, normal oropharynx, mucous membranes moist Neck exam: Present: normal inspection, full ROM. Absent: tenderness, meningismus, lymphadenopathy Respiratory exam: Present: normal lung sounds bilaterally. Absent: respiratory distress, wheezes, rales, rhonchi, stridor Cardiovascular Exam: Present: normal rhythm, tachycardia, normal heart sounds. Absent: systolic murmur, diastolic murmur, rubs, gallop, clicks GI/Abdominal exam: Present: soft, normal bowel sounds. Absent: distended, tenderness, guarding, rebound, rigid Back exam: Absent: CVA tenderness (R), CVA tenderness (L) Neurological exam: Present: alert Course Vital Signs 11/28/20 11/28/20 11/28/20 17:48 21:27 22:29 Temperature 98.5 F 99.3 F Pulse Rate 134 H 132 H 119 H Respiratory 18 18 18 Rate Blood Pressure 116/73 116/73 121/77 O2 Sat by Pulse 98 98 97 Oximetry 11/28/20 23:51 Temperature 99.2 F Pulse Rate 116 H Respiratory 18 Rate Blood Pressure 133/70 O2 Sat by Pulse 94 L Oximetry Medical Decision Making - Medical Decision Making 25-year-old female presents emergency Department with chief complaint of nausea vomiting, COVID-19. Patient was given 3 L of IV fluids, given Tylenol. Patient unable urinary tract infection she has no flank tenderness patient has tolerated oral intake though she remains to be set tachycardic. I did offer the patient admission to medicine with [employer] consults. She states that she prefers ago home she is tolerating oral intake and has sensitivity care. She understands risk of leaving and return parameters were discussed. - Lab Data Result diagrams: 11/28/20 18:06 11/28/20 18:06 Lab Results 11/28/20 11/28/20 11/28/20 Range/Units 18:06 18:06 20:47 WBC 8.5 (3.8-10.6) k/uL RBC 5.04 (3.80-5.40) m/uL Hgb 12.2 (11.4-16.0) gm/dL Hct 37.6 (34.0-46.0) % MCV 74.6 L (80.0-100.0) fL MCH 24.2 L (25.0-35.0) pg MCHC 32.4 (31.0-37.0) g/dL RDW 14.3 (11.5-15.5) % Plt Count 273 (150-450) k/uL MPV 8.5 Neutrophils % 85 % Lymphocytes % 8 % Monocytes % 4 % Eosinophils % 0 % Basophils % 1 % Neutrophils # 7.2 (1.3-7.7) k/uL Lymphocytes # 0.6 L (1.0-4.8) k/uL Monocytes # 0.4 (0-1.0) k/uL Eosinophils # 0.0 (0-0.7) k/uL Basophils # 0.1 (0-0.2) k/uL Hypochromasia Slight Poikilocytosis Slight Microcytosis Slight Sodium 138 (137-145) mmol/L Potassium 3.2 L (3.5-5.1) mmol/L Chloride 108 H (98-107) mmol/L Carbon Dioxide 14 L (22-30) mmol/L Anion Gap 16 mmol/L BUN 11 (7-17) mg/dL Creatinine 0.68 (0.52-1.04) mg/dL Est GFR (CKD-EPI)AfAm >90 (>60 ml/min/1.73 sqM) Est GFR (CKD-EPI)NonAf >90 (>60 ml/min/1.73 sqM) Glucose 89 (74-99) mg/dL Calcium 8.7 (8.4-10.2) mg/dL Total Bilirubin 1.4 H (0.2-1.3) mg/dL AST 39 H (14-36) U/L ALT 15 (4-34) U/L Alkaline Phosphatase 280 H (38-126) U/L Total Protein 6.5 (6.3-8.2) g/dL Albumin 3.2 L (3.5-5.0) g/dL Urine Color [place] Urine Appearance Turbid H (Clear) Urine pH 6.0 (5.0-8.0) Ur Specific [place] 1.015 (1.001-1.035) Urine Protein 1+ H (Negative) Urine Glucose (UA) Negative (Negative) Urine Ketones 1+ H (Negative) Urine Blood Small H (Negative) Urine Nitrite Negative (Negative) Urine Bilirubin 1+ H (Negative) Urine Urobilinogen 12.0 (<2.0) mg/dL Ur Leukocyte Esterase Large H (Negative) Urine RBC 14 H (0-5) /hpf Urine WBC >182 H (0-5) /hpf Urine WBC Clumps Moderate H (None) /hpf Ur Squamous Epith Cells 6 H (0-4) /hpf Urine Bacteria Many H (None) /hpf Urine Mucus Many H (None) /hpf Disposition Clinical Impression: Nausea & vomiting, Urinary tract infection, Dehydration, Coronavirus infection Disposition: HOME SELF-CARE Condition: Stable Instructions (If sedation given, give patient instructions): Acute Nausea and Vomiting (ED) Additional Instructions: Please return to the Emergency Department if symptoms worsen or any other concerns. Prescriptions: Amoxicillin/Potassium Clav [Augmentin 875-125 Tablet] 1 tab PO Q12HR #14 tab Is patient prescribed a controlled substance at d/c from ED?: No Referrals: Ivanna Baer DO [Primary Care Provider] - 1-2 days Time of Disposition: 00:40
[2020-11-28] MEDS ORDERED: SODIUM CHLORIDE 0.9% 1,000 ML IV ONE (22:44)
[2020-11-28 23:53] VITALS: BP 133/70; PULSE 116; TEMP 99.2
== END 2020-11-29 01:15 | disposition home or self-care (01) ==
LOC: EC 15:44
DX: O21.2 Late vomiting of pregnancy (principal); O23.43 Unspecified infection of urinary tract in pregnancy, third trimester; O99.283 Endocrine, nutritional and metabolic diseases complicating pregnancy, third trimester; O98.513 Other viral diseases complicating pregnancy, third trimester; O99.513 Diseases of the respiratory system complicating pregnancy, third trimester; O99.343 Other mental disorders complicating pregnancy, third trimester; U07.1 COVID-19; E86.0 Dehydration; J45.909 Unspecified asthma, uncomplicated; K21.9 Gastro-esophageal reflux disease without esophagitis; F41.9 Anxiety disorder, unspecified; F31.9 Bipolar disorder, unspecified; Z3A.38 38 weeks gestation of pregnancy; Z88.1 Allergy status to other antibiotic agents; Z88.2 Allergy status to sulfonamides; Z88.5 Allergy status to narcotic agent; Z90.49 Acquired absence of other specified parts of digestive tract
CPT/HCPCS: 99284; 96365; 96375; 96361 ×3; 36415; 80053; 85025; 81001; 87086; J2405; J0696

== ENCOUNTER 2020-12-01 10:00 | Inpatient (IN) | payer OTHER ==
[~2020-12-01 10:00] MED LIST: CITRIC ACID-SODIUM CITRATE 15 ML CUP PO ONE
[2020-12-01] MEDS: LACTATED RINGERS 1,000 ML IV SCH ×2 (10:36→18:50)
[2020-12-01 10:58] LABS: Basophils % (A) 0 %; Eosinophils # (A) 0.1 k/uL (0-0.7); Eosinophils % (A) 1 %; HCT 32.2 % (34.0-46.0); HGB 10.5 gm/dL (11.4-16.0); Hypochromasia Slight; Lymphocytes # (A) 0.9 k/uL (1.0-4.8); Lymphocytes % (A) 15 %; MCH 24.4 pg (25.0-35.0); MCHC 32.5 g/dL (31.0-37.0); MCV 75.1 fL (80.0-100.0); Mean Platelet Volume 9.2; Microcytosis Slight; Monocytes # (A) 0.4 k/uL (0-1.0); Monocytes % (A) 6 %; Neutrophils # (A) 4.3 k/uL (1.3-7.7); Neutrophils % (A) 75 %; Platelet Count 230 k/uL (150-450); Poikilocytosis Slight; RBC 4.29 m/uL (3.80-5.40); RDW 14.8 % (11.5-15.5); WBC 5.8 k/uL (3.8-10.6)
[2020-12-01] MEDS ORDERED: MORPHINE SULFATE (PF) 0.3 MG/0.3 ML SYR ONE (12:15)
[2020-12-01] MEDS ORDERED: PHENYLEPHRINE-0.9% NACL SYG 1,000 MCG/10 ML SYRINGE ONE (12:15)
[2020-12-01] MEDS ORDERED: diphenhydrAMINE 50 MG/ML 1 ML VIAL ONE (12:15)
[2020-12-01] MEDS ORDERED: NALBUPHINE 10 MG/ML (1 ML AMP) ONE (12:15)
[2020-12-01] MEDS ORDERED: ONDANSETRON 4 MG/2 ML VIAL ONE (12:15)
[2020-12-01] MEDS ORDERED: NALOXONE 0.4 MG/ML 1 ML VIAL IV PRN ×2 (12:44→13:07)
[2020-12-01] MEDS ORDERED: ONDANSETRON 4 MG/2 ML VIAL IVP PRN ×2 (12:44→13:07)
[2020-12-01] MEDS ORDERED: diphenhydrAMINE 50 MG/ML 1 ML VIAL IVP PRN ×3 (12:44→13:07)
--- NOTE | 2020-12-01 13:06 | P.OP ---
Date of Procedure: 12/01/20 Preoperative Diagnosis: IUP at 39-0/7 weeks, history of 1, desires repeat, family status complete Postoperative Diagnosis: Same Procedure(s) Performed: Repeat section with tubal ligation Anesthesia: spinal Surgeon: Merly Lira Byproducts Supervisor #1: Destiny Sebastian Estimated Blood Loss (ml): 375 IV fluids (ml): 500 Urine output (ml): 150 Pathology: other Condition: stable Disposition: observation Indications for Procedure: 25-year-old at 39-0/7 weeks that presents for repeat section per her request. Patient's prior was done for breech presentation. Patient states she is done with family planning and desires tubal ligation. Operative Findings: Normal uterus tubes and ovaries were appreciated. Cuevas was draining clear yellow urine at the end of the procedure. Viable male infant delivered at 1235, weight of 9 lbs. 6 oz. and Apgars of 9 and 9 at one and 5 minutes respect weight. Description of Procedure: Patient was taken back to the operating suite where spinal anesthesia was found be adequate by the anesthesia department. She was then prepped and draped in the normal sterile fashion in the dorsal supine position. A Pfannenstiel skin incision was made the scalpel and carried through to the underlying layer of fascia. The fascia was then incised in the midline and extended laterally. The superior aspect of the fascial incision was then grasped leo clamps, elevated and underlying rectus muscles dissected off sharply. Attention was then turned the inferior aspect of the fascial incision which was grasped leo clamps, elevated and underlying rectus muscles dissected off sharply. Rectus muscles were in the midline the peritoneum was identified and entered. The bladder blade was inserted into the pelvis. The vesicouterine peritoneum was identified and the bladder flap was created using sharp and blunt dissection. The bladder was straight away from the operating field. The bladder blade was then reinserted and the pelvis. Hysterotomy incision was performed with the scalpel meconium-stained fluid was appreciated. The was encountered in a vertex presentation and delivered in the usual fashion. The umbilical cord was doubly clamped and cut and the infant was handed off to awaiting RN, spontaneous cry was noted at . The placenta was then delivered manually intact with a three-vessel cord being noted. The uterine incision was closed with 0 Vicryl in a running locked fashion. Hemostasis was appreciated. The left fallopian tube was inspected and grasped with the Filshie clip applicator, and operated according to terrazzo polisher helper's instructions. This was then repeated on the opposite side. Both tubal sites were hemostatic. The hysterotomy incision was inspected hemostasis was appreciated. The uterus was returned the abdomen. The gutters were cleared of all clots and debris. Uterine incision was inspected once again and found to be hemostatic. The rectus muscles were then loosely reapproximated. The rectus muscles were inspected found to be hemostatic. The fascia was then closed 0 Vicryl in a running fashion from one lateral edge the midline and the other lateral edge the midline. The subcutaneous tissue was irrigated found to be hemostatic and closed with 3-0 Vicryl in a running fashion from one lateral edge the midline. The skin was then closed with 4-0 Vicryl in a subarticular fashion. Steri-Strips and sterile dressings were applied. All counts were noted be correct 2 at the end of the procedure. Patient and tolerated delivery well and are resting comfortably.
[2020-12-01] MEDS ORDERED: ZOLPIDEM 5 MG TAB PO PRN (13:07)
[2020-12-01] MEDS ORDERED: SIMETHICONE 80 MG CHEWABLE PO PRN (13:07)
[2020-12-01] MEDS ORDERED: diphenhydrAMINE 50 MG CAP PO PRN (13:07)
[2020-12-01] MEDS ORDERED: MEASLES-MUMPS-RUBELLA VACC/PF 12,500 UNIT/0.5 ML VIAL SQ ONE (13:07)
[2020-12-01] MEDS ORDERED: METOCLOPRAMIDE 5 MG/ML 2 ML VIAL IVP PRN (13:07)
[2020-12-01] MEDS ORDERED: diphenhydrAMINE 25 MG CAP PO PRN (13:07)
--- NOTE | 2020-12-01 13:07 | P.HPOB ---
History of Present Illness H&P Date: 12/01/20 Chief Complaint: IUP @ 39 weeks, h/o c section x1 desires repeat with TL this is a 25 yo that presents for repeat section. she had a prior c section for breech presentation. she desires repeat with tubal ligation as she is done with childbearing. she has been receiving routine care with a recent dx of COVID 19. she began having sx on 11/17, with a positive test on 11/23. she has noted good FM, occ ctx. On bloodwork this patient's blood type of AB+, rubella status nonimmune, hep Brandi surface antigen negative, group beta strep negative HIV negative, RPR is nonreactive. Patient has a history of asthma and significant anxiety. Review of Systems Constitutional: Reports fatigue, Denies chills, Denies fever Ears, nose, mouth and throat: Denies headache Cardiovascular: Reports leg edema Respiratory: Denies dyspnea Gastrointestinal: Reports nausea, Reports vomiting Genitourinary: Reports Past Medical History Past Medical History: Asthma, GERD/Reflux, Pneumonia, Seizure Disorder, Skin Disorder Additional Past Medical History / Comment(s): complex seizure distorder until 8 yrs old, heart murmer, eczema, anemia, pneumonia 9th grade History of Any Multi-Drug Resistant Organisms: None Reported Past Surgical History: Appendectomy, Ear Surgery Past Anesthesia/Blood Transfusion Reactions: Motion Sickness Smoking Status: Never smoker - Past Family History Mother Family Medical History: No Reported History Father Additional Family Medical History / Comment(s): bipolar Brother(s) Family Medical History: Diabetes Mellitus Additional Family Medical History / Comment(s): autism, adhd Medications and Allergies Home Medications Medication Instructions Recorded Confirmed Type Amoxic-Pot Clav 875-125Mg 1 tab PO BID 12/01/20 12/01/20 History [Augmentin 875-125] Allergies Allergy/AdvReac Type Severity Reaction Status Date / Time almond oil Allergy Anaphylaxis,throat Verified 12/01/20 10:15 swelling bee venom protein (honey bee) Allergy Anaphylaxis Verified 12/01/20 10:15 coconut Allergy Anaphylaxis Verified 12/01/20 10:15 egg Allergy Anaphylaxis Verified 12/01/20 10:15 sulfamethoxazole Allergy Vomiting Verified 12/01/20 10:15 [From Bactrim] trimethoprim [From Bactrim] Allergy Vomiting Verified 12/01/20 10:15 ciprofloxacin [From Cipro] AdvReac Nausea & Verified 12/01/20 10:15 Vomiting ketorolac [From Toradol] AdvReac Nausea & Verified 12/01/20 10:15 Vomiting morphine AdvReac Nausea & Verified 12/01/20 10:15 Vomiting,"mean" Exam Osteopathic Statement: *. No significant issues noted on an osteopathic structural exam other than those noted in the History and Physical/Consult. Targeted physical exam is performed in this date and customer service manager a well-nourished well-developed female in no acute distress, breathing is noted to be nonlabored, heart has regular rhythm, abdomen is gravid and appropriate for gestational age. heart tones noted be category 1 and she is not rianna. Cervical exam is deferred. Results Result Diagrams: 12/01/20 10:35 Assessment and Plan (1) H/O section Current Visit: No Status: Acute Code(s): Z98.891 - HISTORY OF UTERINE SCAR FROM PREVIOUS SURGERY SNOMED Code(s): 094555466 (2) Family planning Current Visit: No Status: Acute Code(s): Z30.09 - ENCOUNTER FOR OT GENERAL CNSL AND ADVICE ON CONTRACEPTION SNOMED Code(s): 567216461 (3) 39 weeks gestation of Current Visit: No Status: Acute Code(s): Z3A.39 - 39 WEEKS GESTATION OF SNOMED Code(s): 71388734 (4) UTI (urinary tract infection) Narrative/Plan: Previously started on Augmentin orally. Current Visit: Yes Status: Acute Code(s): N39.0 - URINARY TRACT INFECTION, SITE NOT SPECIFIED SNOMED Code(s): 29677697 Plan: 25 yo that presents for repeat section with tubal ligation. discussed tubal and permanence of procedure. she states understanding, failure rates reviewed in addition. risks reviewed with patient including but limited to infection, bleeding, damage to bladder, bowel, injury. Patient states understanding and wishes to proceed with .
[2020-12-01] MEDS ORDERED: OXYTOCIN 30 UNITS/500 ML NS 30 UNIT in SALINE 1 500ML.BAG IV SCH (13:15)
[2020-12-01] MEDS ORDERED: LACTATED RINGERS 1,000 ML IV SCH (13:15)
[2020-12-01] MEDS ORDERED: IBUPROFEN IV 800 MG in SODIUM CHLORIDE 0.9% 250 ML IV PRN (13:15)
[2020-12-01] MEDS: ACETAMINOPHEN IV (For NPO) 1,000 MG in EMPTY BAG 1 BAG IVPB PRN ×2 (15:55→22:58)
[2020-12-01] MEDS: ACETAMINOPHEN TAB 500 MG TAB PO SCH ×2 (17:48→22:59)
[2020-12-01] MEDS: IBUPROFEN 600 MG TAB PO SCH (19:21)
[2020-12-01] MEDS: SENNOSIDES-DOCUSATE SODIUM 1 EACH TAB PO SCH (19:44)
[2020-12-01] MEDS: AMOXIC-POT CLAV 875-125MG 1 EACH TAB PO SCH (20:37)
[2020-12-02] MEDS: LACTATED RINGERS 1,000 ML IV SCH ×3 (00:15→21:42)
[2020-12-02] MEDS: IBUPROFEN 600 MG TAB PO SCH ×4 (03:18→21:05)
[2020-12-02 05:04] LABS: Basophils % (A) 1 %; Eosinophils # (A) 0.1 k/uL (0-0.7); Eosinophils % (A) 2 %; HCT 28.1 % (34.0-46.0); HGB 9.5 gm/dL (11.4-16.0); Lymphocytes # (A) 1.1 k/uL (1.0-4.8); Lymphocytes % (A) 18 %; MCH 24.9 pg (25.0-35.0); MCHC 33.8 g/dL (31.0-37.0); MCV 73.5 fL (80.0-100.0); Mean Platelet Volume 9.6; Microcytosis Slight; Monocytes # (A) 0.6 k/uL (0-1.0); Monocytes % (A) 9 %; Neutrophils # (A) 4.3 k/uL (1.3-7.7); Neutrophils % (A) 69 %; Platelet Count 211 k/uL (150-450); Poikilocytosis Slight; RBC 3.82 m/uL (3.80-5.40); RDW 15.1 % (11.5-15.5); WBC 6.2 k/uL (3.8-10.6)
[2020-12-02] MEDS: ACETAMINOPHEN TAB 500 MG TAB PO SCH ×4 (06:16→23:51)
--- NOTE | 2020-12-02 07:13 | P.PN ---
Progress Note - Text 12/02/20 649am 25-year-old female status post with a spinal Duramorph. Patient seen and evaluated this morning for postop pain control, patient has VAS of 0, patient has no complains of nausea vomiting. Patient does have mild pruritus should subside by the end of the day.
[2020-12-02 08:49] VITALS: RESP 16
[2020-12-02] MEDS: SENNOSIDES-DOCUSATE SODIUM 1 EACH TAB PO SCH ×2 (09:13→21:42)
[2020-12-02] MEDS: AMOXIC-POT CLAV 875-125MG 1 EACH TAB PO SCH ×2 (09:13→21:05)
--- NOTE | 2020-12-02 09:14 | P.PNOBGPC ---
Subjective - Subjective Principal diagnosis: Postop day 1, repeat with tubal ligation Interval history: Patient is doing well this morning. Cuevas remains as urine output was slightly decreased overnight. Patient had a prior COVID-19 infection and most likely hasn't been hydrating well. Patient denies discomfort. Patient is tolerating a regular diet without nausea or vomiting. Lochia is noted be minimal. Patient reports: Reports appetite normal, Reports pain well controlled, Reports ambulating normally : doing well Objective - Vital Signs Latest vital signs: Vital Signs Temp Pulse Resp BP Pulse Ox 12/02/20 08:00 97.6 F 75 16 100/60 12/02/20 06:28 18 12/02/20 05:00 16 12/02/20 04:30 97.6 F 74 18 105/60 94 L 12/02/20 03:00 18 12/02/20 01:00 16 12/02/20 00:45 97.5 F L 62 18 97/58 95 12/01/20 22:40 14 12/01/20 21:00 18 12/01/20 20:30 97.7 F 68 16 117/59 95 12/01/20 19:00 18 12/01/20 17:00 16 96 12/01/20 15:03 96.1 F L 71 16 109/59 96 12/01/20 14:33 65 16 113/76 96 12/01/20 14:03 64 16 111/69 96 12/01/20 13:48 61 16 109/64 96 12/01/20 13:33 63 16 110/66 96 12/01/20 13:18 64 16 112/69 96 12/01/20 13:03 96.4 F L 84 16 119/73 95 12/01/20 10:21 96.1 F L 89 16 121/77 96 Intake and Output 12/01/20 12/02/20 12/02/20 22:59 06:59 14:59 Output Total 250 370 Balance -250 -370 Output: Urine 250 370 Other: Voiding Method Indwelling Catheter Indwelling Catheter - Exam Extremities: Present: normal Abdomen: Present: normal appearance, soft Incision: Present: normal, dry, intact Uterus: Present: normal, firm, other (Below the umbilicus) - Labs Labs: Abnormal Lab Results - Last 24 Hours (Table) 12/01/20 12/02/20 Range/Units 10:35 03:30 Hgb 10.5 L 9.5 L (11.4-16.0) gm/dL Hct 32.2 L 28.1 L (34.0-46.0) % MCV 75.1 L 73.5 L (80.0-100.0) fL MCH 24.4 L 24.9 L (25.0-35.0) pg Lymphocytes # 0.9 L (1.0-4.8) k/uL Assessment and Plan (1) H/O section Current Visit: No Status: Acute Code(s): Z98.891 - HISTORY OF UTERINE SCAR FROM PREVIOUS SURGERY SNOMED Code(s): 704571107 (2) Family planning Current Visit: No Status: Acute Code(s): Z30.09 - ENCOUNTER FOR OT GENERAL CNSL AND ADVICE ON CONTRACEPTION SNOMED Code(s): 340266265 (3) 39 weeks gestation of Current Visit: No Status: Acute Code(s): Z3A.39 - 39 WEEKS GESTATION OF SNOMED Code(s): 30053834 (4) UTI (urinary tract infection) Current Visit: Yes Status: Acute Code(s): N39.0 - URINARY TRACT INFECTION, SITE NOT SPECIFIED SNOMED Code(s): 49332310 Plan: 25-year-old G2 now P2 status post repeat section with tubal ligation. We will monitor urine output this morning, most likely Cuevas will be removed and we will await spontaneous void. Encourage increased ambulation. Continue routine postoperative care.
[2020-12-03 00:01] VITALS: PULSE 71
[2020-12-03] MEDS: IBUPROFEN 600 MG TAB PO SCH ×2 (02:25→08:25)
[2020-12-03] MEDS: ACETAMINOPHEN TAB 500 MG TAB PO SCH (05:48)
[2020-12-03 07:53] VITALS: BP 137/88; TEMP 98
--- NOTE | 2020-12-03 08:07 | P.DS ---
Providers Date of admission: 12/01/20 10:00 Expected date of discharge: 12/03/20 Attending physician: Merly Lira Primary care physician: Stated None Hospital Course: This is a 25-year-old 2 para 1001 who presented at 39 weeks gestation for repeat section and tubal ligation. Her history is significant for anxiety, depression, bipolar disorder, asthma, and previous section for breech presentation. Please see dictated history and physical for details. Patient underwent an unremarkable repeat low transverse section with tubal ligation, giving to a liveborn male with scores of 9 and 9 at one and 5 minutes respectively. Infant weighed 42 60 g, or 9 lbs. 6 oz. Please see dictated operative note for details. Is doing well. She is voiding, and bleeding, passing flatus without difficulty. Vital signs are stable and she is afebrile. Symmetric and 18 week size. Extremities are negative for edema. Chest is clear. Parker infant is doing well. She is judged to be in very good condition for discharge home. Will follow-up in the office for incision check in 2 weeks. I have reminded her no intercourse, tampons or douching. She has been given a prescription [facility] for [place] to be used every 4-6 hours as needed for pain, #15 with no refills. She denies the need for breast pump. Proper incision care is reviewed. Her chest is clear, extremities are negative, fundus is firm and in the midline, 16-18 week size. Breasts are not engorged. She is judged to be in very good condition for discharge home. Assessment: Doing well second postoperative day Patient Condition at Discharge: Good Plan - Discharge Summary New Discharge Prescriptions: No Action Amoxic-Pot Clav 875-125Mg [Augmentin 875-125] 1 tab PO BID Discharge Medication List Amoxic-Pot Clav 875-125Mg [Augmentin 875-125] 1 tab PO BID 12/01/20 [History] Follow up Appointment(s)/Referral(s): Merly Lira DO [Doctor of Osteopathic Medicine] - 2 Weeks Discharge Disposition: HOME SELF-CARE
[2020-12-03] MEDS: AMOXIC-POT CLAV 875-125MG 1 EACH TAB PO SCH (08:30)
== END 2020-12-03 09:52 | disposition home or self-care (01) | DRG 784 ==
LOC: 4FBP 10:00
PROVIDERS: ADMIT Obstetrics & Gynecology Obstetrics; ATTEND Obstetrics & Gynecology Obstetrics
PROC: 0UL70CZ Occlusion of Bilateral Fallopian Tubes with Extraluminal Device, Open Approach (ICD-10-PCS; principal; 2020-12-01 12:00)
PROC: 10D00Z1 Extraction of Products of Conception, Low, Open Approach (ICD-10-PCS; principal; 2020-12-01 12:00)
DX: O34.211 Maternal care for low transverse scar from previous cesarean delivery (principal); O99.354 Diseases of the nervous system complicating childbirth; O23.43 Unspecified infection of urinary tract in pregnancy, third trimester; O99.344 Other mental disorders complicating childbirth; O99.52 Diseases of the respiratory system complicating childbirth; L29.9 Pruritus, unspecified; J45.909 Unspecified asthma, uncomplicated; G40.909 Epilepsy, unspecified, not intractable, without status epilepticus; F31.9 Bipolar disorder, unspecified; F41.9 Anxiety disorder, unspecified; Z30.2 Encounter for sterilization; Z86.16 Personal history of COVID-19; K21.9 Gastro-esophageal reflux disease without esophagitis; R01.1 Cardiac murmur, unspecified; Z81.8 Family history of other mental and behavioral disorders; Z83.3 Family history of diabetes mellitus; Z87.01 Personal history of pneumonia (recurrent); Z98.890 Other specified postprocedural states; Z90.49 Acquired absence of other specified parts of digestive tract; Z88.5 Allergy status to narcotic agent; Z88.2 Allergy status to sulfonamides; Z88.1 Allergy status to other antibiotic agents; Z91.030 Bee allergy status; Z91.012 Allergy to eggs
CPT/HCPCS: 85025; 86850; 86900; 86901